=== PATIENT | female | born 1955 | race Caucasian/White ===

== ENCOUNTER 2019-04-13 15:25 | Outpatient (CLI) | payer OTHER, SELFPAY ==
--- NOTE | ~2019-04-13 | XR_ITS ---
EXAMINATION: XR shoulder RT min 2V DATE: 04/13/2019 15:54 INDICATION: Right shoulder pain. TECHNIQUE: 4 views of right shoulder were obtained. COMPARISON: None. FINDINGS: Bone alignment is normal. No fracture. There is mild osteoarthritis of glenohumeral joint a nd moderate osteoarthritis of acromioclavicular joint. IMPRESSION: 1. Polyarticular osteoarthritis. Reviewed, dictated and finalized at location A. EW TEACHER
== END 2019-04-13 15:26 | disposition home or self-care (01) ==
PROVIDERS: PCP Family Medicine; Visit Provider Family Medicine
DX: M25.511 Pain in right shoulder (principal)
CPT/HCPCS: 73030

== ENCOUNTER 2019-04-18 12:16 | Outpatient (CLI) | payer OTHER, SELFPAY ==
--- NOTE | ~2019-04-18 | MM_ITS ---
EXAMINATION: MM screening [facility] BI w kasie HISTORY: Screening mammogram TECHNIQUE: Craniocaudal and mediolateral oblique 3-D tomosynthesis images were obtained and synthetic 2-D images were generated. CAD analysis was submitted and interpreted. COMPARISON: 11/25/2016, 08/15/2014, 01/13/2012 BREAST PARENCHYMAL COMPOSITION: There are scattered areas of fibroglandular density. FINDINGS: There is no evidence of suspicious mass, calcification, or architectural distortion to sugg est malignancy in either breast. There has been no suspicious interval change. IMPRESSION: 1. No mammographic evidence of malignancy. 2. Recommend routine screening mammography in one year. BI-RADS Category 1: Negative Reviewed, dictated and finalized at location A. OR ANALYTICAL CHEMIST
== END 2019-04-18 12:17 | disposition home or self-care (01) ==
LOC: CHSIMG 12:21
PROVIDERS: PCP Family Medicine; Visit Provider Family Medicine
DX: Z12.31 Encounter for screening mammogram for malignant neoplasm of breast (principal)
CPT/HCPCS: 77063; 77067

== ENCOUNTER 2019-05-03 13:48 | Outpatient (CLI) | payer OTHER, SELFPAY ==
--- NOTE | ~2019-05-03 | MR_ITS ---
EXAMINATION: MR shoulder RT wo con DATE: 05/03/2019 14:39 INDICATION: Right shoulder pain TECHNIQUE: Magnetic resonance imaging (MRI) of the right shoulder was performed without intravenous c ontrast. Sequences included axial PD-weighted FS FSE, coronal oblique PD-weighted FS FSE, coronal obl ique T2-weighted FS FSE, sagittal PD-weighted FS FSE, and sagittal T1-weighted SE. COMPARISON: Shoulder radiographs dated 04/03/2019 FINDINGS: Coracoacromial arch: The acromion undersurface is curved in morphology (type II). The coracoacromial ligament is normal. M oderate acromioclavicular osteoarthritis. Rotator cuff: Supraspinatus and mild infraspinatus tendinopathy without discrete tear. The teres minor tendon is no rmal. Subscapularis tendinopathy without discrete tear. Normal rotator cuff muscle bulk and signal. Biceps tendon, glenoid labrum and glenohumeral cartilage: Long head of the biceps tendon appears normal although evaluation of the intra-articular portion of t he tendon is limited by suboptimal position of the arm which is in partial internal rotation. Glenoid labrum is normal. Mild partial thickness cartilage loss with smooth chondral surface along the cepha lad third of the glenoid. Fluid: Physiologic amount of fluid in the glenohumeral joint and biceps tendon sheath. No loose osteochondra l bodies. Small amount of fluid in the subacromial/subdeltoid bursa consistent with mild bursitis. Bones: Normal marrow signal with no edema, fracture or abnormal marrow replacing process. IMPRESSION: 1. Rotator cuff tendinopathy, moderate at the supraspinatus and mild at the infraspinatus and subscap ularis tendons without discrete tear. 2. Moderate acromioclavicular osteoarthritis and mild glenohumeral osteoarthritis. 3. Mild subacromial/subdeltoid bursitis. Reviewed, dictated and finalized at location A. AGER HAND IMPRESSION: 1. Rotator cuff tendinopathy, moderate at the supraspinatus and mild at the inf raspinatus and subscapularis tendons without discrete tear. 2. Moderate acromioclavicular osteoarthritis and mild glenohumeral osteoarthrit is. 3. Mild subacromial/subdeltoid bursitis.
== END 2019-05-03 13:49 | disposition home or self-care (01) ==
PROVIDERS: PCP Family Medicine; Visit Provider Family Medicine
DX: M25.511 Pain in right shoulder (principal)
CPT/HCPCS: 73221

== ENCOUNTER 2019-10-18 16:53 | Outpatient (CLI) | payer OTHER, SELFPAY ==
--- NOTE | ~2019-10-18 | XR_ITS ---
XR foot LT min 3V DATE: 10/18/2019 17:24 INDICATION: Chronic toe pain TECHNIQUE: 4 views COMPARISON: None FINDINGS: Moderate osteopenia. There is plantar and posterior calcaneal enthesopathy. There is hallux valgus and bunion deformity. S ubchondral lucencies are noted at the first metatarsal head medially and laterally. Differential diag nosis includes subchondral degenerative pseudocyst versus gout or erosive arthropathy. Recommend clin ical correlation. No fracture, dislocation, periosteal reaction or bone destruction is noted otherwise. IMPRESSION: Calcaneal enthesopathy Degenerative change at the first metatarsophalangeal joint with subchondral lucencies of the metatars al head and lateral base of the proximal phalanx of first digit. Differential diagnosis includes dege nerative subchondral cyst versus erosive arthropathy or gout. Reviewed, dictated and finalized at location B. IMPRESSION: Calcaneal enthesopathy Degenerative change at the first metatarsophalangeal joint with subchondral delia encies of the metatarsal head and lateral base of the proximal phalanx of first digit. Differential diagnosis includes degenerative subchondral cyst versus er osive arthropathy or gout.
--- NOTE | ~2019-10-18 | XR_ITS ---
XR hand LT min 3V DATE: 10/18/2019 17:25 INDICATION: Chronic left hand pain, worsening TECHNIQUE: 3 views COMPARISON: None FINDINGS: There is osteoarthritic change primarily at the interphalangeal joints. No fracture or dislocation, periosteal reaction or bone destruction, erosive change or chondrocalcino sis is evident. IMPRESSION: Osteoarthritis Reviewed, dictated and finalized at location B. IMPRESSION: Osteoarthritis
--- NOTE | ~2019-10-18 | XR_ITS ---
XR hip LT min 2V DATE: 10/18/2019 17:25 INDICATION: Chronic left hip pain TECHNIQUE: AP and lateral views of the left hip COMPARISON: None FINDINGS: No fracture, dislocation, avascular necrosis or bone destruction. Left hip joint space is w ell preserved. IMPRESSION: Negative Reviewed, dictated and finalized at location B. IMPRESSION: Negative
== END 2019-10-18 16:54 | disposition home or self-care (01) ==
LOC: CHSIMG 16:55
PROVIDERS: PCP Family Medicine; Visit Provider Family Medicine
DX: M79.675 Pain in left toe(s) (principal); M79.602 Pain in left arm; M25.552 Pain in left hip
CPT/HCPCS: 73130; 73502; 73630

== ENCOUNTER 2020-01-31 12:19 | Outpatient (CLI) | payer OTHER, SELFPAY ==
--- NOTE | ~2020-01-31 | XR_ITS ---
EXAMINATION: XR humerus RT EXAM DATE: 01/31/2020 12:49 INDICATION: Right arm pain, tingling radiating toward hand. TECHNIQUE: 2 orthogonal projections right humerus. Correlation was made with right shoulder exam fro m 04/13/2019. FINDINGS: There is mild to moderate right shoulder primary osteoarthritis. There are no acute fractur es or dislocations identified. There is no subcutaneous gas. The soft tissue is unremarkable. The re are no radiopaque foreign bodies. IMPRESSION: Mild to moderate shoulder osteoarthritis. Reviewed, dictated and finalized at location A. GRITY CONSULTANT
[2020-01-31 12:51] LABS: Basophils Absolute Auto 0.04 K/mm3 (0.00-0.10); Basophils Percent Auto 0.4 % (0.0-1.0); Eosinophils Percent Auto 0.9 % (1.0-6.0); Hematocrit 37.3 % (35.0-49.0); Hemoglobin 11.6 g/dL (12.0-15.0); Immature Granulocyte Absolute 0.06 K/mm3 (0.00-0.00); Immature Granulocyte Percent A 0.5 % (0.0-0.0); Lymphocytes Absolute Auto 1.84 K/mm3 (1.10-4.50); Lymphocytes Percent Auto 16.3 % (18.0-42.0); Mean Corpuscular HGB Conc 31.1 g/dL (32.0-36.0); Mean Corpuscular Hemoglobin 28.1 pg (27.0-31.0); Mean Corpuscular Volume 90.3 fL (78.0-102.0); Mean Platelet Volume 10.9 fl (9.2-11.8); Monocytes Absolute Auto 0.64 K/mm3 (0.10-0.90); Monocytes Percent Auto 5.7 % (2.0-11.0); Neutrophils Absolute Auto 8.6 K/mm3 (1.7-7.2); Neutrophils Percent Auto 76.2 % (50.0-70.0); Platelet Count Result 255 K/mm3 (150-420); Red Blood Count 4.13 M/mm3 (4.20-5.40); Red Cell Distribution Width 13.2 % (11.6-14.4); White Blood Count 11.3 K/mm3 (4.8-10.8)
[2020-01-31 13:00] LABS: D Dimer 0.45 mg/L (0.19-0.50)
[2020-01-31 13:12] LABS: Alanine Aminotransferase 24 U/L (14-59); Albumin Level 3.7 g/dL (3.4-5.0); Alkaline Phosphatase 85 U/L (46-116); Anion Gap 9 mmol/L (8-16); Aspartate Amino Transferase 15 U/L (15-37); Bilirubin,Total 0.4 mg/dL (0.00-1.00); Blood Urea Nitrogen 16 mg/dL (7-18); Carbon Dioxide 28 mmol/L (21-32); Chloride 101 mmol/L (98-108); Creatine Kinase 44 U/L (26-192); Estimated Glomerular Filt Rate 49; Glucose 129 mg/dL (70-99); Osmolality Calculated 289 mOsm/kg (285-295); Potassium 4.2 mmol/L (3.5-5.1); Sodium 138 mmol/L (136-145); Total Protein 8.4 g/dL (6.4-8.2)
[2020-01-31 13:40] LABS: Creatine Kinase MB < 0.50 ng/mL (0.00-5.00); Troponin I < 0.02 ng/mL (0.00-0.056)
== END 2020-01-31 12:20 | disposition home or self-care (01) ==
LOC: CHSLAB 12:20
PROVIDERS: PCP Family Medicine; Visit Provider Family Medicine
DX: I20.9 Angina pectoris, unspecified (principal); M79.601 Pain in right arm
CPT/HCPCS: 36415; 73060; 80053; 82550; 82553; 84484; 85025; 85380

== ENCOUNTER 2020-09-02 15:20 | Outpatient (CLI) | payer OTHER, SELFPAY ==
[2020-09-02 15:35] LABS: Basophils Absolute Auto 0.08 K/mm3 (0.00-0.10); Basophils Percent Auto 0.8 % (0.0-1.0); Eosinophils Absolute Auto 0.41 K/mm3 (0.02-0.50); Eosinophils Percent Auto 3.9 % (1.0-6.0); Hematocrit 35.3 % (35.0-49.0); Hemoglobin 11.7 g/dL (12.0-15.0); Immature Granulocyte Absolute 0.04 K/mm3 (0.00-0.00); Immature Granulocyte Percent A 0.4 % (0.0-0.0); Lymphocytes Absolute Auto 1.95 K/mm3 (1.10-4.50); Lymphocytes Percent Auto 18.3 % (18.0-42.0); Mean Corpuscular HGB Conc 33.1 g/dL (32.0-36.0); Mean Corpuscular Hemoglobin 30.1 pg (27.0-31.0); Mean Corpuscular Volume 90.7 fL (78.0-102.0); Mean Platelet Volume 10.7 fl (9.2-11.8); Monocytes Absolute Auto 0.89 K/mm3 (0.10-0.90); Monocytes Percent Auto 8.4 % (2.0-11.0); Neutrophils Absolute Auto 7.3 K/mm3 (1.7-7.2); Neutrophils Percent Auto 68.2 % (50.0-70.0); Platelet Count Result 257 K/mm3 (150-420); Red Blood Count 3.89 M/mm3 (4.20-5.40); Red Cell Distribution Width 13.5 % (11.6-14.4); White Blood Count 10.6 K/mm3 (4.8-10.8)
[2020-09-02 15:49] LABS: Hemoglobin A1C 6.6 % (<5.7)
[2020-09-02 16:01] LABS: Alanine Aminotransferase 29 U/L (14-59); Albumin Level 3.6 g/dL (3.4-5.0); Alkaline Phosphatase 85 U/L (46-116); Anion Gap 10 mmol/L (8-16); Aspartate Amino Transferase 19 U/L (15-37); Bilirubin,Total 0.4 mg/dL (0.00-1.00); Blood Urea Nitrogen 18 mg/dL (7-18); Carbon Dioxide 27 mmol/L (21-32); Chloride 103 mmol/L (98-108); Creatine Kinase 40 U/L (26-192); Estimated Glomerular Filt Rate 56; Glucose 125 mg/dL (70-99); Lipase 136 U/L (73-393); Osmolality Calculated 292 mOsm/kg (285-295); Sodium 140 mmol/L (136-145); Total Protein 7.5 g/dL (6.4-8.2); Troponin I 7.5 ng/L (0.00-60.4)
[2020-09-02 16:02] LABS: Creatine Kinase MB < 0.50 ng/mL (0.00-5.00)
[2020-09-02 16:20] LABS: Add Urine Microscopic? YES; Appearance Urine Clear (Clear); Bilirubin Urine Negative (Negative); Blood Urine 1+ (Negative); Color Urine Light Yellow (Yellow); Glucose Urine UA Negative (Negative); Ketones Urine Negative (Negative); Leukocyte Esterase Ur Negative (Negative); Nitrate Urine Negative (Negative); Protein Urine Negative (Negative); Urobilinogen Urine 0.2 mg/dL (0.2-1.0); pH Urine 6.5 (5.0-8.0)
[2020-09-02 16:24] LABS: RBC Urine 0-2 /hpf (0-2); WBC Urine 0-3 /hpf (0-3)
[2020-09-02 16:25] LABS: Bacteria Urine 1+ /hpf; Squamous Epithelial Cell Urine Few /hpf (Few)
== END 2020-09-02 15:21 | disposition home or self-care (01) ==
LOC: CHSLAB 15:23
PROVIDERS: PCP Family Medicine; Visit Provider Family Medicine
DX: R11.10 Vomiting, unspecified (principal); R07.89 Other chest pain; E11.9 Type 2 diabetes mellitus without complications
CPT/HCPCS: 36415; 80053; 81001; 82550; 82553; 83036; 83690; 84484; 85025

== ENCOUNTER 2020-11-12 12:02 | Outpatient (CLI) | payer OTHER, SELFPAY ==
--- NOTE | ~2020-11-12 | MM_ITS ---
EXAMINATION: MM screening [facility] BI w kasie HISTORY: Screening TECHNIQUE: Craniocaudal and mediolateral oblique 3-D tomosynthesis images were obtained and synthetic 2-D images were generated. CAD analysis was submitted and interpreted. COMPARISON: Comparison to multiple prior studies sequentially, with oldest reviewed study dated 11/2010. BREAST PARENCHYMAL COMPOSITION: There are scattered areas of fibroglandular density. FINDINGS: There is no evidence of suspicious mass, calcification, or architectural distortion to sugg est malignancy in either breast. There has been no suspicious interval change. IMPRESSION: 1. No mammographic evidence of malignancy. 2. Recommend routine screening mammography in one year. BI-RADS Category 1: Negative Reviewed, dictated and finalized at location A.
--- NOTE | ~2020-11-12 | DEXA_ITS ---
Bone Density Report Name: Sharda Mccabe Age: 65 Sex: Female Ethnicity: White Date of : 1955 Indication: osteopenia; parental hip fracture; height loss; history of glucocorticoids; prior fracture; rheumatoid arthritis; Referring Provider: Tamela, Yadi Carpio Study: Bone densitometry was performed. Exam Date: November 12, 2020 Accession number: [id number] Bone Density: Region BMD T-score Z-score Classification AP Spine(L1-L4) 0.769 -2.5 -0.8 Osteoporosis Femoral Neck (Left) 0.660 -1.7 -0.2 Osteopenia Total Hip (Left) 0.879 -0.5 0.7 Normal Femoral Neck (Right) 0.682 -1.5 0.0 Osteopenia Total Hip (Right) 0.861 -0.7 0.5 Normal Femoral Neck Mean 0.671 -1.6 -0.1 Osteopenia Total Hip Mean 0.870 -0.6 0.6 Normal World Health Organization criteria for BMD impression classify patients as: Normal (T-score at or above -1.0), Osteopenia (T-score between -1.0 and -2.5), or Osteoporosis (T-score at or below -2.5). 10-year Fracture Risk: FRAX not reported because: Some T-score for Spine Total or Hip Total or Femoral Neck at or below -2.5 Previous Exams: Region Exam Age BMD T-score BMD Change BMD Change Date g/cm2 vs Baseline vs Previous AP Spine (L1-L4) 11/12/2020 65 0.769 -2.5 -0.192 (-20.0% -0.065 (-7.8%) 11/25/2016 61 0.834 -1.9 -0.127 (-13.2% -0.127 (-13.2% 02/22/2009 54 0.961 -0.8 Total Hip(Left) 11/12/2020 65 0.879 -0.5 -0.125 (-12.5% -0.079 (-8.2%) 11/25/2016 61 0.958 0.1 -0.046 (-4.6%) -0.046 (-4.6%) 02/22/2009 54 1.004 0.5 Total Hip(Right) 11/12/2020 65 0.861 -0.7 -0.157 (-15.4% -0.157 (-15.4% 02/22/2009 54 1.018 0.6 *Denotes significance at 95% confidence level, LSC for AP Spine = 0.022 g/cm2, LSC for Total Hip = 0.027 g/cm2 # Denotes dissimilar scan types or analysis methods Clinical Information Provided by Patient: Has had a low trauma fracture Parent has had a hip fracture Has taken Glucocorticoids Has rheumatoid arthritis Patient maximum height was 63 No regular weight bearing exercise Drinks caffeinated beverages Onset of menses at age 14 Impression: The patient has established osteoporosis, based on the Total Spine T-score and the existence of a prior fracture. The patient has risk factors, including: parental hip fracture, previous fracture, history of glucocorticoid therapy. No significant bone loss was observed. Discussion: HIGH RISK OF FRACTURE. BONE DENSITY IS
== END 2020-11-12 12:03 | disposition home or self-care (01) ==
LOC: CHSIMG 12:03
PROVIDERS: PCP Family Medicine; Visit Provider Nurse Practitioner Family
DX: Z12.31 Encounter for screening mammogram for malignant neoplasm of breast (principal); Z78.0 Asymptomatic menopausal state
CPT/HCPCS: 77063; 77067; 77080

== ENCOUNTER 2021-12-08 12:43 | Outpatient (CLI) | payer OTHER, SELFPAY ==
--- NOTE | ~2021-12-08 | XR_ITS ---
EXAMINATION: XR foot RT min 3V DATE: 12/08/2021 13:06 INDICATION: Pain at the right great toe with inflammatory polyarthritis. TECHNIQUE: Dorsoplantar, two oblique and lateral views of the right foot were obtained. COMPARISON: None. FINDINGS: Prominent juxta-articular erosion at the medial side of the head of the first proximal phalanx. There are overhanging edges and indents masslike soft tissue density extending peripherally from the erosi on most suspicious for tophaceous gout. No other erosions identified. No other erosions identified. T here is associated intra-articular pathologic fracture with slight depression of the medial third of the distal articular surface with approximately 1 mm step-off along the articular cortex. Alignment i s otherwise normal. No other fractures identified. Mild osteoarthritis at the first metatarsophalange al and left few of the tarsal metatarsal and interphalangeal joints. IMPRESSION: 1. Large erosion at the medial head of the first proximal phalanx with associated extraosseous massli ke soft tissue density most suspicious for tophaceous gout. 2. Likely secondary pathologic intra-articular fracture involving the medial articular cortex of the first proximal phalanx which overlies the erosion. Reviewed, dictated and finalized at location A. IMPRESSION: 1. Large erosion at the medial head of the first proximal phalanx with associat ed extraosseous masslike soft tissue density most suspicious for tophaceous gou t. 2. Likely secondary pathologic intra-articular fracture involving the medial ar ticular cortex of the first proximal phalanx which overlies the erosion.
== END 2021-12-08 12:44 | disposition home or self-care (01) ==
LOC: CHSIMG 12:49
PROVIDERS: PCP Family Medicine
DX: M06.4 Inflammatory polyarthropathy (principal)
CPT/HCPCS: 73630

== ENCOUNTER 2021-12-23 12:47 | Outpatient (CLI) | payer OTHER, SELFPAY ==
--- NOTE | ~2021-12-23 | MM_ITS ---
EXAMINATION: MM screening [facility] BI w kasie HISTORY: Screening TECHNIQUE: Craniocaudal and mediolateral oblique 3-D tomosynthesis images were obtained and synthetic 2-D images were generated. CAD analysis was submitted and interpreted. COMPARISON: Comparison to multiple prior studies sequentially, with oldest reviewed study dated 12/15. BREAST PARENCHYMAL COMPOSITION: Breast composed of scattered areas of fibroglandular density FINDINGS: There is no evidence of suspicious mass, calcification, or architectural distortion to sugg est malignancy in either breast. There has been no suspicious interval change. IMPRESSION: 1. No mammographic evidence of malignancy. 2. Recommend routine screening mammography in one year. BI-RADS Category 1: Negative Reviewed, dictated and finalized at location A.
== END 2021-12-23 12:48 | disposition home or self-care (01) ==
LOC: CHSIMG 12:48
PROVIDERS: PCP Family Medicine; Visit Provider Family Medicine
DX: Z12.31 Encounter for screening mammogram for malignant neoplasm of breast (principal)
CPT/HCPCS: 77063; 77067

== ENCOUNTER 2022-02-10 15:34 | Outpatient (RCR) | payer OTHER, SELFPAY ==
--- NOTE | 2022-02-10 16:54 | PTOPEVDC ---
Assessment and note entered by Adri Dunn DPT Thank you for referring Sharda Mccabe to [facility].? An evaluation has been completed. No further treatment is needed. Evaluation Information Assessment Status Evaluation Diagnosis BPPV Onset 01/10/2022 Subjective Information Pt reports that she was at work and felt really dizzy. She felt like she was about to pass out. She went to the ER and found that her BP was really high. She reports no past history of dizziness in the past. Pt reports that at onset, the room was spinning, and she feels that she was being pulled to the left. She reports that symptoms last less than a minute. She reports that she gets symptoms when she looks up, rotates in bed, and sometimes when she leans down. She reports that she has meclizine that she takes as needed which she took this morning at 8am. She reports that she is unsure if the meclizine is helping her dizziness. Pt reports that she had a handful of ear infections when she was a kid but doesn't remember which ears. She reports frequent sinus infections and reports she sometimes likes to pop her ears. She reports that she has RA. Denies hearing changes and tinnitus, but reports some tinnitus over the years in both ears, L>R. Does not recall taking -myocin drugs in the past for chronic periods of time. She takes her BP medications regularly and they were adjusted since this all happened. Denies symptoms with pressure changes. Reported Pain Level Pain Score 0: Self Report Assessment PT Clinical Summary Pt presented to skilled PT with vertiginous symptoms when moving in bed, looking up, and when looking down. 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 The L Isabel was performed x 2 with patient demonstrating negative canalithic involvement via the L [place]-Hallpike and bilateral Supine Head Roll test after each performance of the Isabel. She was educated on the pathophysiology of her condition and was educated on performing the Isabel one additional time when waking up in the morning. PT suspects that treatment was successful due to lack of symptoms or nystagmus after treatment, but PT plans to follow-up with patient via phone call in
== END 2022-02-10 16:13 | disposition home or self-care (01) ==
LOC: CHSPT 15:34
PROVIDERS: PCP Family Medicine; Visit Provider Family Medicine
DX: R42 Dizziness and giddiness (principal)
CPT/HCPCS: 97110; 97161

== ENCOUNTER 2022-06-25 13:45 | Outpatient (CLI) | payer OTHER, MEDICARE, SELFPAY ==
--- NOTE | ~2022-06-25 | XR_ITS ---
Left foot Technique: AP, oblique, and lateral views were obtained. Clinical History: Third digit pain Findings: No acute fracture or dislocation is seen. Osseous alignment is anatomic. Stable subchondral lucencies at the first metatarsal head.. Soft tissues are unremarkable. Impression: Stable subchondral lucencies at the first metatarsal head. Consider mild osteoarthritic change versus possibly gout or other erosive arthropathy. Reviewed, dictated and finalized at [facility]. Impression: Stable subchondral lucencies at the first metatarsal head. Consider mild osteoa rthritic change versus possibly gout or other erosive arthropathy.
== END 2022-06-25 13:46 | disposition home or self-care (01) ==
PROVIDERS: PCP Family Medicine; Visit Provider Family Medicine
DX: M79.671 Pain in right foot (principal); M79.672 Pain in left foot
CPT/HCPCS: 73630

== ENCOUNTER 2022-07-28 12:26 | Outpatient (CLI) | payer OTHER, MEDICARE, SELFPAY ==
--- NOTE | ~2022-07-28 | US_ITS ---
EXAMINATION: US soft tissue head and neck DATE: 07/28/2022 12:46 INDICATION: Pain in throat in the area of the thyroid. TECHNIQUE: Multiple ultrasound images of the thyroid were obtained. COMPARISON: None. FINDINGS: The right thyroid lobe measures 2.7 x 1.1 x 1.0 cm. The left thyroid lobe measures 2.3 x 0.8 x 1.3 c m. There is normal echotexture and echogenicity throughout the thyroid gland. No discrete nodules id entified. Normal vascular flow is present. IMPRESSION: 1. Normal thyroid. Reviewed, dictated and finalized at location A. IMPRESSION: 1. Normal thyroid.
== END 2022-07-28 12:27 | disposition home or self-care (01) ==
LOC: CHSIMG 12:28
PROVIDERS: PCP Family Medicine; Visit Provider Family Medicine
DX: R07.0 Pain in throat (principal)
CPT/HCPCS: 76536

== ENCOUNTER 2022-11-12 16:24 | Outpatient (CLI) | payer OTHER, MEDICARE, SELFPAY ==
[2022-11-12 17:17] LABS: Appearance Urine Clear (Clear); Basophils Absolute Auto 0.08 K/mm3 (0.00-0.10); Bilirubin Urine Negative (Negative); Blood Urine Negative (Negative); Color Urine Light Yellow (Yellow); Eosinophils Absolute Auto 0.31 K/mm3 (0.02-0.50); Eosinophils Percent Auto 3.7 % (1.0-6.0); Glucose Urine UA Negative (Negative); Hemoglobin 10.6 g/dL (11.7-13.8); Immature Granulocyte Absolute 0.02 K/mm3 (0.00-0.00); Immature Granulocyte Percent A 0.2 % (0.0-0.0); Ketones Urine Negative (Negative); Lymphocytes Absolute Auto 3.03 K/mm3 (1.10-4.50); Lymphocytes Percent Auto 36.2 % (18.0-42.0); Mean Corpuscular HGB Conc 32.1 g/dL (32.0-36.0); Mean Corpuscular Hemoglobin 30.4 pg (27.0-31.0); Mean Corpuscular Volume 94.6 fL (78.0-102.0); Monocytes Absolute Auto 0.85 K/mm3 (0.10-0.90); Monocytes Percent Auto 10.2 % (2.0-11.0); Neutrophils Absolute Auto 4.1 K/mm3 (1.7-7.2); Neutrophils Percent Auto 48.7 % (50.0-70.0); Nitrate Urine Negative (Negative); Platelet Count Result 233 K/mm3 (150-420); Protein Urine Negative (Negative); Red Blood Count 3.49 M/mm3 (4.20-5.40); Red Cell Distribution Width 12.3 % (11.6-14.4); Urobilinogen Urine 0.2 mg/dL (0.2-1.0); White Blood Count 8.4 K/mm3 (4.8-10.8); pH Urine 7.5 (5.0-8.0)
[2022-11-12 17:21] LABS: Add Urine Microscopic? NO; Leukocyte Esterase Ur Negative LEU/UL (Negative)
[2022-11-12 17:24] LABS: Creatinine Urine 113.05 mg/dL (40-278); Hemoglobin A1C 6.7 % (<5.7); MALB Creatinine Ratio 11.4 mg/g (0-30); Microalbumin Urine Random < 13.0 mg/L
[2022-11-12 17:34] LABS: Alanine Aminotransferase 24 U/L (14-59); Albumin Level 3.5 g/dL (3.4-5.0); Alkaline Phosphatase 64 U/L (46-116); Anion Gap 6 mmol/L (8-16); Aspartate Amino Transferase 18 U/L (15-37); Bilirubin,Total 0.3 mg/dL (0.00-1.00); Blood Urea Nitrogen 23 mg/dL (7-18); Calcium 9.2 mg/dL (8.5-10.1); Carbon Dioxide 33 mmol/L (21-32); Chloride 101 mmol/L (98-108); Estimated Glomerular Filt Rate 38; Glucose 110 mg/dL (70-99); Osmolality Calculated 294 mOsm/kg (285-295); Potassium 3.9 mmol/L (3.5-5.1); Sodium 140 mmol/L (136-145); Thyroid Stimulating Hormone 3.03 uIU/mL (0.36-3.74); Total Protein 7.1 g/dL (6.4-8.2)
[2022-11-12 17:37] LABS: CRP < 0.5 mg/dL (0.0-0.9)
[2022-11-12 17:54] LABS: Influenza A QL RT-PCR Negative (Negative); Influenza B QL RT-PCR Negative (Negative); SARS-CoV-2 RNA PCR Negative (Negative)
[2022-11-12 18:45] LABS: Erythrocyte Sedimentation Rate 50 mm/hr (0-20)
== END 2022-11-12 16:25 | disposition home or self-care (01) ==
LOC: CHSLAB 16:27
PROVIDERS: PCP Family Medicine; Visit Provider Family Medicine
DX: E11.9 Type 2 diabetes mellitus without complications (principal); R53.83 Other fatigue; Z20.822 Contact with and (suspected) exposure to COVID-19
CPT/HCPCS: 36415; 80053; 81003; 82043; 83036; 84443; 85025; 85652; 86140; 87636

== ENCOUNTER 2022-11-18 14:27 | Outpatient (CLI) | payer OTHER, MEDICARE, SELFPAY ==
--- NOTE | ~2022-11-18 | XR_ITS ---
EXAMINATION: XR ankle RT min 3V, XR foot RT min 3V DATE: 11/18/2022 14:59 INDICATION: Right foot pain post injury TECHNIQUE: 1. Anteroposterior, mortise, additional oblique and lateral view of the right ankle were obtained. 2. Dorsoplantar, two oblique and lateral views of the right foot were obtained. COMPARISON: Right foot radiographs dated 12/08/2021 FINDINGS: Again seen is a now chronic intra-articular fracture deformity at the medial head of the right first proximal phalanx. There is approximately 1.6 mm step-off along the articular cortex. There is an unde rlying subarticular/juxta articular erosion suspicious for gout. 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 Normal alignment at t he right foot and ankle is otherwise normal. No acute fracture identified. Mild osteoarthritis at the first metatarsophalangeal and a few tarsometatarsal and interphalangeal joints. Small plantar calcan eal spur. The soft tissues are unremarkable. IMPRESSION: 1. No acute osseous abnormality. 2. Chronic likely pathologic intra-articular fracture at the medial head of the right first proximal phalanx which has healed with residual incongruity at the articular surface which overlies a large ch ronic erosion suspicious for gout. Reviewed, dictated and finalized at location A. IMPRESSION: 1. No acute osseous abnormality. 2. Chronic likely pathologic intra-articular fracture at the medial head of the right first proximal phalanx which has healed with residual incongruity at the articular surface which overlies a large chronic erosion suspicious for gout.
== END 2022-11-18 14:28 | disposition home or self-care (01) ==
LOC: CHSIMG 14:29
PROVIDERS: PCP Family Medicine; Visit Provider Family Medicine
DX: M79.671 Pain in right foot (principal); R93.6 Abnormal findings on diagnostic imaging of limbs
CPT/HCPCS: 73610; 73630

== ENCOUNTER 2024-04-20 11:11 | Outpatient (CLI) | payer MEDICARE, SELFPAY ==
--- NOTE | ~2024-04-20 | XR_ITS ---
Clinical Indication: Upper is recurrent infection PA and lateral views of the chest: Comparison: 08/10/2014 Findings: The lungs are clear, without evidence of focal consolidation or pleural effusion. Cardiome diastinal silhouette is within normal limits. Bones and soft tissues are unremarkable. Impression: Normal chest. Reviewed, dictated and finalized at [facility]. ERVATION OFFICER Impression: Normal chest.
--- OUTSIDE RECORDS SUMMARY | 2024-04-20 11:39 | XMS_ITS | Clinical Summary ---
Author Organization [facility] Address [facility] [place] [address] Care Team Providers Care Yeast Tender Name Role Phone Cameron Lopez MD Primary Care Provider [phone] Allergies Active Allergy Reactions Criticality Noted Date Comments Sulfa Antibiotics Swelling 05/11/2019 Tramadol Nausea and Vomiting 01/06/2023 Medications fluticasone propionate 50 MCG/ACT nasal spray INHALE 1 SPRAY IN EACH NOSTRIL ONCE DAILY NEEDED 01/24/2019 Active zolpidem 10 MG tablet Take 1 tablet (10 mg total) by mouth nightly as needed. at bedtime. 04/18/2019 Active metoprolol succinate ER 50 MG 24 hr tablet Take 1 tablet (50 mg total) by mouth daily. Active nortriptyline 50 MG capsule Take 1 capsule (50 mg total) by mouth nightly at bedtime. Active metFORMIN 500 MG tablet Take 1 tablet (500 mg total) by mouth 2 (two) times daily with meals. Active olmesartan 20 MG tablet Take 1 tablet (20 mg total) by mouth daily. Active simvastatin 40 MG tablet Take 1 tablet (40 mg total) by mouth nightly at bedtime. Active rizatriptan 10 MG tablet Take 1 tablet (10 mg total) by mouth as needed for Migraine. May repeat in 2 hours if needed Active gabapentin (NEURONTIN) 300 MG capsule Take 1 capsule (300 mg total) by mouth daily. 12/14/2022 Active hydroCHLOROthia zide (MICROZIDE) 12.5 MG tablet Take 1 tablet (12.5 mg total) by mouth every morning. 10/12/2022 Active etanercept (ENBREL) 50 MG/ML Solution Auto-injector injection Inject 0.5 mLs (25 mg total) into the skin every 7 days. Active Active Problems Problem Noted Date Diagnosed Date Sprain of anterior talofibul ar ligament of right ankle, subsequent encounter 01/10/2023 Closed nondisplaced fracture of proximal phalanx of right great toe, sequela 01/10/2023 Family History Medical History Relation Comments Heart Attack Brother Diabetes Father Heart Father Heart Attack Father Diabetes Mother Heart Mother Heart Attack Mother Heart Sister Relation Status Comments Brother Father Mother Sister Social History Tobacco Use Types Packs/Day Years Used Date Smoking Tobacco: Never Smokeless Tobacco: Never Tobacco Cessation:Counseling Given: Not Answered Alcohol Use Standard Drinks/Week Comments Not Currently 0 (1 standard drink = 0.6 oz pur e alcohol) Comments Unknown Sex and Gender Information Value Date Recorded Sex Assigned at Not on file Legal Sex Female 8:06 PM CDT Gender Identity Not on file Sexual Orientation Not on file Last Filed Vital Signs Vital Sign Reading Time Taken Comments Blood Pressure - - Pulse - - Temperature - - Respiratory Rate - - Oxygen Saturation - - Inhaled Oxygen Concentration - - Weight 76.2 kg (168 lb) 01/06/2023 1:34 PM CDT Height 152.4 cm (5') 01/06/2023 1:34 PM CDT Body Mass Index 32.81 01/06/2023 1:34 PM CDT Plan of Treatment Health Maintenance Due Date Last Done Comments Colorectal Cancer Screening Colonoscopy (10 Years) 1955 Hepatitis C 01/30/1974 DTaP, Tdap and Td Vaccines ( 1 - Tdap) 01/30/1975 Mammogram Screening 1996 Zoster Vaccines (2 of 3) 07/01/2016 05/06/2016 Annual Medicare Wellness Visit 01/30/2021 Dexa Scan (General) 01/30/2021 Pneumococcal Vaccine: 65+ Ye ars (1 of 1 - PCV) 01/30/2021 COVID-19 Vaccine ( - 2023-2 5 season) 2023 Influenza Adult (#1) 2023 RSV Immunization or 60+ Years (1 - 1-dose 75+ series) 01/30/2031 Meningococcal B Vaccine Aged Out No l onger eligible based on patient's age to complete this topic Meningococcal Vaccine Aged Out No liz korina eligible based on patient's age to complete this topic RSV Immunizations Under 20 Months Aged Out No longer eligible based on patient's age to complete this topic [place] [id number] [facility] Care Teams Yeast Tender Relationship Specialty Start Date End Date Cameron Lopez MD [address] [place] [address] PCP - General FAMILY PRACTICE 05/04/19
--- OUTSIDE RECORDS SUMMARY | 2024-04-20 11:39 | XMS_ITS | Data Portability ---
Author Organization [facility], [address] [facility] ([place]) Address [address] [address] Care Team Providers Care Warehouse Team Leader Name Role Phone MONICO MUNIZ Referring Provider [phone] Assessment Encounter Date Assessment Date Assessment LastModified by Organization Details LastModified Time 09/09/2023 09/09/2023 IMPRESSION: 1. Seropositive RA currently flaring. 2. Osteoarthritis. PLAN: 1. We will obtain a copy of her most recent labs from [facility]. 2. Very brief 1 week course of hydrocodone therapy as she cannot take oral NSAIDs. She has been on hydrocodone in the past and tolerated it well. I informed her today I do not prescribe this medication out beyond 7 day course. She is given [place] 7.5/325 tabs one-half to 1 tablet orally twice daily, given 14 tablets no refill. 3. Discontinue Enbrel. 4. RINVOQ 15 mg orally daily. The indications, risks, benefits and potential side effects of this medication, including risk of infections, cytopenias, hyperlipidemia, myocardial events, DVT, and thromboses, as well as infections are all discussed with the patient today in detail. 5. DMARD labs in 4 weeks after starting RINVOQ, then 8 weeks after starting RINVOQ, also to include a lipid panel. 6. Followup visit in 3 months for recheck. [place] Not available 09/12/2023 09:09:39 12/23/2023 12/23/2023 IMPRESSION: 1. Seropositive RA, currently very well controlled, essentially clinical remission. 2. Osteoarthritis. PLAN: 1. Continue RINVOQ 15 mg daily. 2. Labs done recently will be retrieved and reviewed. 3. Repeat DMARD labs in 6 weeks. 4. Followup visit in 4-1/2 months for recheck. rita Not available 01/04/2024 08:47:11 Plan of Treatment Reminders Order Date Submit Date Provider Last Modified By Organization Details Last Modified Time Details Appointments Establish ed Patient 15.EST 2024 01:00P M Dr. Craig Templeton Not available Not available Not available Lab CBC 2023 024 [email or web address] [facility], [address] [place] [address], [id number], 10/28/2023 14:07:31 CMP, serum or plasma 2023 024 [facility], [address] [place] [address], [id number], 10/28/2023 14:07:31 ESR (erythroc yte sedimenta tion rate), blood 2023 024 [id number] [facility], [address] [place] [address], [id number], 10/28/2023 14:07:32 unlisted lab - CRP ([facility]) 2023 024 [id number] [facility], [address] [place] [address], [id number], 10/28/2023 14:07:32 CBC 2023 024 [id number] [facility], [address] [place] [address], [id number], 01/06/2024 10:27:32 CMP, serum or plasma 2023 024 [id number] [facility], [address] [place] [address], [id number], 01/06/2024 10:27:32 ESR (erythroc yte sedimenta tion rate), blood 2023 024 [id number] [facility], [address] [place] [address], [id number], 01/06/2024 10:27:32 unlisted lab - CRP ([facility]) 2023 [email or web address] [facility], [address] [place] [address], [place], [id number], 01/06/2024 10:27:32 Referral None recorded. Procedures None recorded. Surgeries None recorded. Imaging None recorded. Medication Orders hydrocodo ne 7.5 mg-acetam inophen 325 mg tablet 2023 [id number], [address], [place], [phone], 12/23/2023 16:07:35 Patient TargetsNo targets recorded. Patient InstructionsNo instructions recorded. Reason for Referral None Reported. Results Created Date Observation Date Name Description Value Unit Range Abnormal Flag Note LastModifiedBy Organization Detail LastModifiedTime 10/28/1906/25/2022 imagi ng/di cesaros tic resul t No observ ation record ed. Not Available 10/28/2023 02:23:32 Result Notes None recorded. Problems Name Problem SNOMED Code Status Onset Date Resolution Date Notes Provider Name and Address Organization Details Recorded Time Chronic kidney disease stage 3 701668317 Active 2023 Rubi Gaxiola [facility] 4 11:46:35 Oste[facility] 456467135 [facility] 11:46[facility]40 Seropositive rheumatoid arthritis 471022885 Active 2023 Rubi Gaxiola [facility] 4 11:46:46 Problem Notes None recorded. Procedures Surgical History Date Name Laterality Status Provider Name and Address Organization Details Recorded Time Colonoscopy with biopsy completed Not Available Health Note 09/07/2023 15:12:55 Removal of gallbladder completed Not Available Health Note 09/07/2023 15:12:55 Imaging Results Imaging Date Name Status LastModified by Organiz ation Details LastModified Time 06/25/2022 imaging/diag nostic result completed Information not available 10/28/2023 02:23:32 Procedure Notes None recorded. Medical Equipment None Reported. Allergies Allergen ID Allergen Name Allergen Category Reaction Reaction Severity Criticality Documentation Date Start Date Code Code System Note Provider Name and Address Organization Details Recorded Time 2781210 Acetamino phen / Propoxyph chrissie medicatio n bradycard ia Not available Not available 04/14/20232006 45104 RxNorm React ion: Abhijit cardi a; Not Available Not Available Not Available 359681 Substance with sulfonami de structure and antibacte rial mechanism of action (substanc e) medicatio n swelling Not available Not available 04/12/20232011 07209 8003 SNOMED React ion: Swell ing; Comme nt: Annot ation s: GRUND Y, BRAND ON 2011 3:03P M CAUSE D TONGU E AND LIPS TO SWELL ; ; Not Available Not Available Not Available 101562 tramadol hydrochlo ride medicatio n dizziness Not available Not available 04/12/20232006 96463 RxNorm React ion: Vomit ing; Dizzi ness; Not Available Not Available Not Available 690704 lisinopri l medicatio n Not available Not available Not available 04/12/20232019 33008 RxNorm Not Available Not Available Not Available Medications Name Sig Start Date Stop Date Status Note LastModified by Organization Details LastModified Time metformin 500 mg tablet TAKE 1 TABLET BY MOUTH THREE TIMES DAILY active Not Available Not Available No t Available azithromyci n 250 mg tablet TAKE 2 TABLETS BY MOUTH TODAY, THEN TAKE 1 TABLET DAILY FOR 4 DAYS DIRECTED 12/22 completed Not Available Not Available Not Available metoprolol succinate ER 50 mg tablet,exte nded release 24 hr take 1 tablet daily active Not Available Not Available No t Available hydrocodone 5 mg-acetamin ophen 325 mg tablet TAKE 1 TABLET BY MOUTH EVERY 6 HOURS NEEDED FOR SEVERE PAIN 09/06 completed Not Available Not Available Not Available metoprolol succinate ER 100 mg tablet,exte nded release 24 hr TAKE 1 TABLET BY MOUTH EVERY DAY 12/22 completed Not Available Not Available Not Available amoxicillin 500 mg tablet 12/22 completed Not Available Not Available Not Available simvastatin 40 mg tablet TAKE ONE BY MOUTH EVERY NIGHT AT BEDTIME active Not Available Not Available No t Available hydrocodone 7.5 mg-acetamin ophen 325 mg tablet TAKE 1/2 TO 1 TABLET BY MOUTH TWICE DAILY NEEDED 12/22 completed Not Available Not Available Not Available gabapentin 300 mg capsule TAKE 1 CAPSULE BY MOUTH DAILY active Not Available Not Available No t Available nortriptyli ne 50 mg capsule TAKE 1 CAPSULE BY MOUTH AT BEDTIME active Not Available Not Available No t Available amoxicillin 875 mg-potassiu m clavulanate 125 mg tablet TAKE 1 TABLET BY MOUTH EVERY 12 HOURS 12/22 completed Not Available Not Available Not Available olmesartan 40 mg tablet TAKE 1 TABLET BY MOUTH EVERY DAY active Not Available Not Available No t Available iron 325 mg (65 mg iron) tablet Take 1 tablet every day by oral route. active Not Available Not Available No t Available Enbrel SureClick 50 mg/mL (1 mL) subcutaneou s pen injector Inject 1 mL every week by subcutane ous route. 09/08 completed Not Available Not Available Not Available hydrochloro thiazide 12.5 mg tablet TAKE 1 TABLET BY MOUTH DAILY active Not Available Not Available No t Available Rinvoq 15 mg tablet,exte nded release Take 1 tablet every day by oral route. active Not Available Not Available No t Available Pogo Automatic Blood Glucose System USE TO CHECK BLOOD SUGAR ONCE DAILY active Not Available Not Available No t Available Pogo Automatic Test Cartridge 30 gauge combo pack USE TO CHECK BLOOD SUGAR ONCE DAILY active Not Available Not Available No t Available Ozempic 0.25 mg or 0.5 mg (2 mg/3 mL) subcutaneou s pen injector INJECT 0.5MG UNDER THE SKIN WEEKLY 12/22 completed Not Available Not Available Not Available Vitals Date Recorded Body height Body mass index (BMI) Body weight Heart rate Oxygen saturation Oxygen saturation in Arterial blood by Pulse oximetry Pain severity - 0-10 verbal numeric rating [Score] - Reported Systolic blood pressure Diastolic blood pressure Provider Name and Address Organization Details Last Updated DateTime 4 152.4 cm 29.3 kg/m2 16702.8 6 g 78 /min 98 % 98 % 7 130 mm[Hg] 80 mm[Hg] Rubi Gaxiola [facility] 4 14:46:53 Date Recorded Body height Body mass index (BMI) Body weight Heart rate Oxygen saturation Oxygen saturation in Arterial blood by Pulse oximetry Pain severity - 0-10 verbal numeric rating [Score] - Reported Systolic blood pressure Diastolic blood pressure Provider Name and Address Organization Details Last Updated DateTime 4 152.4 cm 31.5 kg/m2 18062.8 1 g 71 /min 96 % 96 % 0 138 mm[Hg] 76 mm[Hg] Татьяна Norma [facility] 4 16:06:43 Social History Question Answer Notes LastModified by [employer] Details LastModified Time Tobacco Smoking Status Never Smoker Татьяна [facility] 12/23/2023 16:08:38 Do You Have An Advance Directive? No [email or web address] Information not available 09/07/2023 What Is Your Level Of Alcohol Consumption? None [email or web address] Information not available 09/07/2023 What Is Your Level Of Caffeine Consumption? Occasional [email or web address] Information not available 09/07/2023 Are You Currently Employed? 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 1-2 Times Per Week [email or web address] Information not available 09/07/2023 Do You Have A Medical Power Of Resource Conservation Specialist? No [email or web address] Information not available 09/07/2023 What Was The Date Of Your Most Recent Tobacco Screening? 09/09/2023 [email or web address] Information not available 09/07/2023 What Is Your Relationship Status? [email or web address] Information not available 09/07/2023 Do You Use Any Illicit Or Recreational Drugs? No [email or web address] Information not available 09/07/2023 Sex: Unknown Functional Status Question Answer Note LastModified by [employer] Details LastModified Time What is your exercise level? Occasional [email or web address] Information not available 09/07/2023 Mental Status None recorded. Family History Relationship Description Onset Age of this Age Resolved Age Notes LastModified by Organization Details LastModified Time Unspecified Relation Attention deficit hyperactivit y disorder [email or web address] Not available 09/06 15:12:53 Father Alzheimer's disease [email or web address] Not available 2023 15:12:53 Father Arthritis [email or web address] Not available 09/07/2023 15:12:53 Father Chronic obstructive pulmonary disease [email or web address] Not available 2023 15:12:53 Father Diabetes mellitus [email or web address] Not available 2023 15:12:53 Father Heart disease [email or web address] Not available 2023 15:12:53 Father Hypertensive disorder [email or web address] Not available 2023 15:12:53 Father Hypercholest erolemia [email or web address] Not available 2023 15:12:54 Mother Chronic obstructive pulmonary disease [email or web address] Not available 2023 15:12:54 Mother Diabetes mellitus [email or web address] Not available 2023 15:12:54 Mother Heart disease [email or web address] Not available 2023 15:12:54 Mother Hypertensive disorder [email or web address] Not available 2023 15:12:54 Mother Osteoporosis [email or web address] Not availa ble 09/07/2023 15:12:54 Sister Chronic obstructive pulmonary disease [email or web address] Not available 2023 15:12:54 Sister Diabetes mellitus [email or web address] Not available 2023 15:12:54 Sister Heart disease [email or web address] Not available 2023 15:12:54 Sister Hypertensive disorder [email or web address] Not available 2023 15:12:54 Sister Hypercholest erolemia [email or web address] Not available 2023 15:12:54 Brother Chronic obstructive pulmonary disease [email or web address] Not available 2023 15:12:54 Brother Diabetes mellitus [email or web address] Not available 2023 15:12:54 Brother Heart disease [email or web address] Not available 2023 15:12:54 Brother Hypertensive disorder [email or web address] Not available 2023 15:12:54 Brother Hypercholest erolemia [email or web address] Not available 2023 15:12:54 Maternal Grandmother Diabetes mellitus [email or web address] Not available 2023 15:12:54 Maternal Grandmother Heart disease [email or web address] Not available 2023 15:12:54 Maternal Grandmother Hypertensive disorder [email or web address] Not available 2023 15:12:54 Maternal Grandfather Heart disease [email or web address] Not available 2023 15:12:54 Maternal Grandfather Hypertensive disorder [email or web address] Not available 2023 15:12:54 Paternal Grandfather Heart disease [email or web address] Not available 2023 15:12:54 Medical History Condition Response Diabetes Y Anxiety Disorder N Bleeding Disorder N Attention-deficit Hyperactivity Disorder N High Blood Pressure Y Arthritis Y Hyperlipidemia N Cancer N Stroke N Thyroid Problems N Asthma N Depression N COPD N Anemia Y Seizures N Heart Disease N Fibromyalgia Y Osteoporosis N Kidney Disease N Gynecological HistoryNo gynecological history recorded. Obstetrics History GPAL:G 0 P 0 0 0 0 Past Encounters Encounter ID Performer Location Encounter Start Date Encounter Closed Date Diagnosis/Indication Diagnosis SNOMED-CT Code Diagnosis ICD10 Code Diagnosis Note [id number] [facility] ([place]) [address] [facility] [place] [address] 09/09/2023 14:14:03 09/14/2023 04:16:05 Seropositive rheumatoid arthritis 379591941 M05.9 Osteoarthritis 711613876 M19.90 Chronic ki dney disease stage 3 152176768 N18.30 Seropositi ve rheumatoid arthritis of multiple joints 3734023662 6635470 M05.89 Long-term current use of etanercept 5537827753 62985 Z79.173 [id number] Craig Templeton MD [facility] ([place]) [address] [facility] [place] [address] 12/23/2023 15:52:27 01/05/2024 08:49:18 Seropositive rheumatoid arthritis 290914423 M05.9 Osteoarthritis 822398425 M19.90 Chronic ki dney disease stage 3 834993442 N18.30 Health Concerns Section Related Observation LastModified by Organization Detai ls LastModified Time None Recorded Concern Status LastModified by Organization Details LastModified Time None Recorded Advance Directives Directive N: Payers Encounter Date Sequence Insurance Name Policy Number Policy Alvarado Covered Member ID Alvarado Member ID Guarantor Name 09/09/2023 1 [facility] [employer] [id number] Sharda Burtoner [id number] Sharda Dunhamgler 09/09/2023 2 [place] Sharda Burtoner [id number] Sharda Dunhamgler 12/23/2023 2 [place] Sharda Dunhamgler [id number] Sharda Dunhamgler 12/23/2023 1 [facility] [id number] Sharda Burtoner [id number] Sharda Burtoner Notes Date Note Type Note Provider Name and Address Organization Details Recorded Time 4 text/html The patient is a 68-year-old female with seropositive RA and osteoarthritis, who is here today for a 6 month followup visit. She continues on Enbrel monotherapy and reports tolerating the medication well. She had been on some Medrol, but then tapered herself off, but now has encountered a flare over the past 2-3 weeks with migratory arthralgias, swelling, pain and stiffness involving the wrists today at the left hand and wrist, but just this past week involving the right side, especially at the MCP joints of the hands. Her morning stiffness is currently lasting 60-90 minutes in duration. She rates her pain level today a 7/10 on a scale. She reports currently no issue with DVT or PE. No shingles. She has actually had the shingles vaccine. She has no history of melanoma or lymphoma or solid organ malignancy. She denies any fever or chills. No skin rash or Raynaud s symptoms, aphthous ulcers, neck swelling, lymph node swelling, cough or pleurisy, shortness of breath, chest pain or palpitations, GERD, melena or hematochezia, diarrhea or constipation. Of note, she has failed trials of mycophenolate, methotrexate, leflunomide and hydroxychloroquine.[place] Sharda Ruizmegan a 68 year oldfemalepresenting for care. Craig Templeton MD [address] [facility], [place], [address], [facility] 09/14/2023 11:25:16 4 text/html The patient is a 68-year-old female with seropositive RA and osteoarthritis, who is here today for a 4 month followup visit. At last visit, we stitched her from Enbrel to RINVOQ. It took a period of time to get it approved and finally get it in her hands. She reports she has now completed 2 full months of therapy and states that initially she was not sure it was going to work, but by the second week she felt tremendously better and currently she feels as though she felt back when things were normal and she was not diagnosed with RA. She has little to no morning stiffness. No pain at this time. She can close her hands again and just yesterday cleaned her entire greenhouse and cut her lawn, 2 things which she could not do previously. She reports that the RINVOQ is a miracle drug. It has led to a complete buddhist of her ability to do pretty much anything she wishes. She denies any medication associated postdosing headache, nausea, vomiting, rash, pruritus, cough, pleurisy, shortness of breath, chest pain or palpitations, GERD, melena or hematochezia, diarrhea or constipation, anorexia or early satiety. No VTE events or MACE events. She denies any shingles episodes. Her energy level is normal. She has had no Raynaud s symptoms. She did recently have labs at [facility] and we will obtain a copy of these labs for my review.rita Templeton MD [address] [facility], [place], [address], [facility] 01/04/2024 20:55:17 OBGyn Episode No OBEpisode recorded.
== END 2024-04-20 11:12 | disposition home or self-care (01) ==
PROVIDERS: PCP Family Medicine; Visit Provider Family Medicine
DX: J06.9 Acute upper respiratory infection, unspecified (principal)
CPT/HCPCS: 71046

== ENCOUNTER 2024-08-30 09:42 | Outpatient (CLI) | payer MEDICARE, SELFPAY ==
--- NOTE | ~2024-08-30 | CT_ITS ---
Non-contrast CT scan of the Abdomen and Pelvis Clinical indication: Abdominal pain Technique: 2.5 mm axial scans were obtained through the abdomen and pelvis without intravenous or or al contrast. Dose reduction technique was used on this scan by utilizing automated exposure control a nd iterative reconstruction technique. The dose-length product (DLP) was 426.62 mGy-cm. Findings: Images through the lung bases reveal no abnormalities. There is no evidence of renal or ureteral calculi. The kidneys and the ureters are nondilated. The liver, spleen, pancreas, and adrenals appear normal. Cholecystectomy clips are present. There is no aortic aneurysm. There is no evidence of bowel obstruction. Images through the pelvis were performed. There is no evidence of ascites or lymphadenopathy. Urinary bladder unremarkable. No pelvic mass seen. Impression: No significant abnormality seen. Reviewed, dictated and finalized at [facility]. Impression: No significant abnormality seen.
--- OUTSIDE RECORDS SUMMARY | 2024-08-30 10:42 | XMS_ITS | Data Portability ---
Author Organization [facility], [address] [facility] [place]rology ([place]) Address [address] [address] Care Team Providers Care Zinc Plate Cutter Name Role Phone MONICO MUNIZ Referring Provider Assessment Encounter Date Assessment Date Assessment LastModified by Organization Details LastModified Time 09/09/2023 09/09/2023 IMPRESSION: 1. Seropositive RA currently flaring. 2. Osteoarthritis. PLAN: 1. We will obtain a copy of her most recent labs from [facility]. 2. Very brief 1 week course of hydrocodone therapy as she cannot take oral NSAIDs. She has been on hydrocodone in the past and tolerated it well. I informed her today I do not prescribe this medication out beyond 7 day course. She is given [place] 7.5/325 tabs one-half to 1 tablet orally [...] visit in 4-1/2 months for recheck. rita [email or web address] Not available 01/04/2024 08:47:11 05/11/2024 05/11/2024 IMPRESSION: 1. Seropositive RA, currently stable. 2. Osteoarthritis. 3. History of recent bronchopneumoni a, overall markedly improved. PLAN: 1. We will obtain a copy of her most recent [facility] labs performed in February of last year. 2. Plan on repeat DMARD labs July 13, 2024. 3. Continue current RINVOQ dosing. 4. Followup visit in 4 months. rita [email or web address] Not available 05/11/2024 15:45:10 Plan of Treatment Reminders Order Date Submit Date Provider Last Modified By Organization Details Last Modified Time Details Appointments Establish ed Patient 15.EST 2024 11:30A M Dr. Craig Templeton Not available Not available Not available Lab CBC 2023 024 [id number] [facility], [address] [place] [address], [id number], 10/28/2023 14:07:31 CMP, serum or plasma 2023 024 [id number] [facility], [address] [place] [address], [address], 10/28/2023 14:07:31 ESR (erythroc yte sedimenta tion rate), blood 2023 024 [id number] [facility], [address] [place] [address], [id number], 10/28/2023 14:07:32 unlisted lab - CRP ([facility]) 2023 024 [id number] [facility], [address] [place] [address], [address], 10/28/2023 14:07:32 CBC 2023 024 [facility], [address] [place] [address], [address], 01/06/2024 10:27:32 CMP, serum or plasma 2023 024 [id number] [facility], [address] [place] [address], [address], 01/06/2024 10:27:32 ESR (erythroc yte sedimenta tion rate), blood 2023 024 [id number] [facility], [address] [place] [address], [id number], 01/06/2024 10:27:32 unlisted lab - CRP ([facility]) 2023 024 [id number] [facility], [address] [place] [address], [address], 01/06/2024 10:27:32 Referral None recorded. Procedures None recorded. Surgeries None recorded. Imaging None recorded. Medication Orders hydrocodo ne 7.5 mg-acetam inophen 325 mg tablet 2023 [id number], [address] [place], [place], [id number], 12/23/2023 16:07:35 Patient TargetsNo targets recorded. Patient InstructionsNo instructions recorded. Reason for Referral None Reported. Results Created Date Observation Date Name Description Value Unit Range Abnormal Flag Note LastModifiedBy Organization Detail LastModifiedTime 10/28/19 24 06/25/2022 imagi ng/di agnos tic resul t No observ ation record ed. [email or web address] Not Available 10/28/2023 02:23:32 Result Notes None recorded. Problems Name Problem SNOMED Code Status Onset Date Resolution Date Notes Provider Name and Address Organization Details Recorded Time Generalized osteoarthritis 612932645 Active 2024 Craig Templeton MD [address] [place], [address], [facility] 5 14:23:48 Chronic kidney disease stage 3 116664111 Active 2023 Rubi Gaxiola [facility], [facility] 4 11:46:35 Osteoarthritis 748812241 Active 2023 Rubi Gaxiola [facility] 4 11:46:40 Seropositive rheumatoid arthritis 099226781 Active 2023 Craig Templeton MD [address] [place] [address], [phone] [place] [address] 5 14:23:40 Problem Notes None recorded. Procedures Surgical History Date Name Laterality Status Provider Name and Address Organization Details Recorded Time Colonoscopy with biopsy completed Not Available Health Note 09/07/2023 15:12:55 Removal of gallbladder completed Not Available Health Note 09/07/2023 15:12:55 Imaging Results None recorded. Procedure Notes None recorded. Medical Equipment None Reported. Allergies Allergen ID Allergen Name Allergen Category Reaction Reaction Severity Criticality Documentation Date Start Date Code Code System Note Provider Name and Address Organization Details Recorded Time 6866477 Acetamino phen / Propoxyph chrissie medicatio n bradycard ia Not available Not available 04/14/20232006 55349 RxNorm React ion: Abhijit cardi a; Not Available [facility] 4 04:10:04 400641 Substance with sulfonami de structure and antibacte rial mechanism of action (substanc e) medicatio n swelling Not available Not available 04/12/20232011 58644 8003 SNOMED React ion: Swell ing; Comme nt: Annot ation s: GRUND Y, BRAND ON 2011 3:03P M CAUSE D TONGU E AND LIPS TO SWELL ; ; Not Available [facility] 4 23:45:33 490656 tramadol hydrochlo ride medicatio n dizziness Not available Not available 04/12/20232006 84909 RxNorm React ion: Vomit ing; Dizzi ness; Not Available [facility] 4 23:45:34 781127 lisinopri l medicatio n Not available Not available Not available 04/12/20232019 56018 RxNorm Not Available [facility] 4 23:45:34 Medications Name Sig Start Date Stop Date Status Note LastModified by Organization Details LastModified Time metformin 500 mg tablet TAKE 1 TABLET BY MOUTH THREE TIMES DAILY active Not Available Not Available No t Available azithromyci n 250 mg tablet TK 2 TS PO ON DAY 1, THEN TK 1 T PO D FOR 4 DAYS active Not Available Not Available No t Available metoprolol succinate ER 50 mg tablet,exte [...] Not Available simvastatin 40 mg tablet TAKE 1 TABLET BY MOUTH EVERY NIGHT AT BEDTIME active Not Available Not Available No t Available hydrocodone 7.5 mg-acetamin ophen 325 mg tablet TAKE 1/2 TO 1 TABLET BY MOUTH TWICE DAILY NEEDED 12/22 completed Not Available Not Available Not Available gabapentin 300 mg capsule TAKE 1 CAPSULE BY MOUTH DAILY active Not Available Not Available No t Available levofloxaci n 500 mg tablet TAKE 1 TABLET BY MOUTH EVERY 24 HOURS active Not Available Not Available No t [...] Not Available Not Available No t Available Paxlovid 300 mg (150 mg x 2)-100 mg tablets in a dose pack TK 2 NIRMATREL VIR TS AND 1 RITONAVIR T TOGETHER PO BID FOR 5 DAYS active Not Available Not Available No t Available Ozempic 0.25 mg or 0.5 mg (2 mg/3 mL) subcutaneou s pen injector Inject by subcutane ous route. active Not Available Not Available No t Available Vitals Date Recorded Body height Heart rate Oxygen saturation Oxygen saturation in Arterial blood by Pulse oximetry Systolic blood pressure Diastolic blood pressure Provider Name and Address Organization Details Last Updated DateTime 5 152.4 cm 79 /min 97 % 97 % 144 mm[Hg] 80 mm[Hg] Nick Fernandez [facility] 5 13:59:07 Date Recorded Body height Body mass index (BMI) Body weight Heart rate Oxygen saturation Oxygen saturation in Arterial blood by Pulse oximetry Systolic blood pressure Diastolic blood pressure Provider Name and Address Organization Details Last Updated DateTime 4 152.4 cm 29.3 kg/m2 63271.8 6 g 78 /min 98 % 98 % 130 mm[Hg] 80 mm[Hg] Rubi Gaixola [facility] 4 14:46:53 Date Recorded Body height Body mass index (BMI) Body weight Heart rate Oxygen saturation Oxygen saturation in Arterial blood by Pulse oximetry Systolic blood pressure Diastolic blood pressure Provider Name and Address Organization Details Last Updated DateTime 4 152.4 cm 31.5 kg/m2 00246.8 1 g 71 /min 96 % 96 % 138 mm[Hg] 76 mm[Hg] Татьяна Green [facility] 4 16:06:43 Social History Question Answer Notes LastModified by Organizat ion Details LastModified Time Tobacco Smoking Status Never Smoker Татьяна Green [facility] 12/23/2023 16:08:38 Do You Have An Advance Directive? No [email or web address] Information not available 09/07/2023 What Is Your Level Of Caffeine Consumption? Occasional [email or web address] Information not available 09/07/2023 How Many Times Per Week Do You Exercise? 1-2 Times Per Week [email or web address] Information not available 09/07/2023 Do You Have A Medical Power Of Waste Disposal Attendant? No [email or web address] Information not available 09/07/2023 What Was The Date Of Your Most Recent Tobacco Screening? 09/09/2023 [email or web address] Information not available 09/07/2023 What Is Your Relationship Status? [email or web address] Information not available 09/07/2023 Sex: Unknown Functional Status Question Answer Note LastModified by Organizat ion Details LastModified Time Do you use any illicit or recreational drugs? No [email or web address] Information not available 09/07/2023 What is your level of alcohol consumption? None [email or web address] Information not available 09/07/2023 Are you currently employed? 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 Occasional [email or web address] [...] available 2023 15:12:54 Medical History Condition Response Attention-deficit Hyperactivity Disorder N High Blood Pressure Y Thyroid Problems N COPD N Depression N Anemia Y Diabetes Y Anxiety Disorder N Bleeding Disorder N Arthritis Y Hyperlipidemia N Cancer N Stroke N Asthma N Seizures N Heart Disease N Fibromyalgia Y Osteoporosis N Kidney Disease N Gynecological HistoryNo gynecological history recorded. Obstetrics History GPAL:G 0 P 0 0 0 0 Past Encounters Encounter ID Performer Location Encounter Start Date Encounter Closed Date Diagnosis/Indication Diagnosis SNOMED-CT Code Diagnosis ICD10 Code Diagnosis Note [id number] Craig Templeton MD [facility] [place] ([place]) [address] [place] [place] [address] 09/09/2023 14:14:03 09/14/2023 04:16:05 Seropositive rheumatoid arthritis 893705723 M05.9 Osteoarthritis 599311458 M19.90 Chronic ki dney disease stage 3 179976288 N18.30 Seropositi ve rheumatoid arthritis of multiple joints 9835485044 7581309 M05.89 Long-term current use of etanercept 0864128111 95649 Z79.193 [id number] Craig Templeton MD [facility] [place] ([place]) [address] [place] [address] 12/23/2023 15:52:27 01/05/2024 08:49:18 Seropositive rheumatoid arthritis 344554245 M05.9 Osteoarthritis 988700409 M19.90 Chronic ki dney disease stage 3 529853572 N18.30 [id number] Craig Templeton MD [facility] [place] ([place]) [address] [place] [address] 05/11/2024 13:52:31 05/12/2024 07:07:25 Seropositive rheumatoid arthritis 345133328 M05.9 Generalize d osteoarthritis 154075911 M15.9 Health Concerns Section Related Observation LastModified by Organization Detai ls LastModified Time None Recorded Concern Status LastModified by Organization Details LastModified Time None Recorded Advance Directives Directive N: Payers Insurance Date Sequence Insurance Name Policy Number Policy Alvarado Covered Member ID Alvarado Member ID Guarantor Name 05/12/2024 1 [place] [id number] Sharda L Estelle [id number] Sharda L Estelle 12/22/2023 1 Progression [id number] Sharda L Estelle [id number] Sharda L Estelle 02/25/2024 2 [place] Sharda L Estelle [id number] Sharda L Estelle 06/24/2024 2 [place] Sharda L Estelle [id number] Sharda L Estelle Notes Date Note Type Note Provider Name [...] trials of mycophenolate, methotrexate, leflunomide and hydroxychloroquine.cheyenne Maciel a 68 year oldfemalepresenting for care. Craig Templeton MD [facility] [address], [address], [facility] 09/14/2023 11:25:16 4 text/html The patient [...] drug. It has led to a complete episcopal of her ability to do pretty much [...] symptoms. She did recently have labs at [facility] and we will obtain a copy of these labs for my review.rita Templeton MD [facility] [address], [address], [facility] 01/04/2024 20:55:17 5 text/html The patient is a 69-year-old female with a history of seropositive RA and osteoarthritis, who is here today for a followup visit. She reports she had to go off her RINVOQ for about 12 days approximately 2-3 weeks ago after developing sudden onset of shortness of breath and fatigue. She was seen by her PCP and diagnosed with a bronchopneumonia. She was treated with a Z-Froylan and then was transitioned to Levaquin. She could only take a few days of the Levaquin. It was causing severe muscle aches and tendon pain. However, she now is feeling better. She still has an occasional cough, but is not producing the yellow sputum she was while she was infected. She has been using a nasal lavage automated system to help remove congestion from her nose. She has had no fever or chills. She denies any pleurisy, chest pain or palpitations at this time. No dysuria or gross hematuria, GERD, melena or hematochezia. She is now back on RINVOQ therapy. She reports that approximately the 7th or 8th day se was off the medication she began to experience some increased pain and stiffness throughout the hands, wrists, elbows, knees, ankles and MTP joints of the feet. These symptoms have now improved dramatically. She rates her pain level a 1-2/10 on a scale. Her morning stiffness now has settled down, dropping from 1-2 hours in duration to less than 30 minutes.rita Templeton MD [address] [place] [address], [address], [facility] 05/11/2024 21:58:10 OBGyn Episode No OBEpisode recorded.
--- OUTSIDE RECORDS SUMMARY | 2024-08-30 10:42 | XMS_ITS | Clinical Summary ---
Author Organization [facility] Address [facility] [place] [address] Care Team Providers Care Tree Fruit And Nut Farming Supervisor Name Role Phone Cameron Lopez MD Primary Care Provider [phone] Allergies Active Allergy Reactions Criticality Noted Date [...] 1 - Tdap) 01/30/1975 Mammogram Screening 1996 Pneumococcal Vaccine: 50+ Ye ars (1 of 1 - PCV) 01/30/2006 Zoster Vaccines (2 of 3) 07/01/2016 05/06/2016 Annual Medicare Wellness Visit 01/30/2021 Dexa Scan (General) 01/30/2021 COVID-19 Vaccine ( - 2023-2 5 season) 2023 RSV Immunization or 60+ Years (1 [...] age to complete this [place] [address] [facility] Care Teams Tree Fruit And Nut Farming Supervisor Relationship Specialty Start Date End Date Cameron Lopez MD [address] [place] [address] PCP - General FAMILY PRACTICE 05/04/19
--- OUTSIDE RECORDS SUMMARY | 2024-08-30 10:42 | XMS_ITS ---
Author Organization Unknown Address [address] [place] [phone] Phone Care Team Providers Care Shipping Assistant Name Role Phone WALDO DACOSTA Attending Unavailable JEREMIE RAMOS EMPLOYEE BENEFITS ATTORNEY Unavailable CRISTY MARC Primary Unavailable Immunization Immunization Date Status Additional Notes Code Code System Td (adult), 2 Lf tetanus toxoid, preservative free, adsorbed 01/10/2005 Completed 09 CVX Tdap 10/28/2016 Completed 115 CVX zoster live 05/06/2016 Completed 121 CVX Influenza, split virus, trivalent, preservative 11/14/2011 Completed 141 CVX Influenza, split virus, trivalent, preservative 12/13/2012 Completed 141 CVX zoster recombinant 05/20/2021 Completed 187 CVX zoster recombinant 11/18/2021 Completed 187 CVX Influenza, adjuvanted, quadrivalent, PF 02/02/2023 Completed 205 CVX COVID-19, mRNA, LNP-S, PF, 1 00 mcg/0.5mL dose or 50 mcg/0.25mL dose 03/18/2020 Completed 207 CVX COVID-19, mRNA, LNP-S, PF, 1 00 mcg/0.5mL dose or 50 mcg/0.25mL dose 04/15/2020 Completed 207 CVX COVID-19, mRNA, LNP-S, PF, 3 0 mcg/0.3 mL dose 11/25/2020 Completed 208 CVX COVID-19, mRNA, LNP-S, PF, 3 0 mcg/0.3 mL dose, rayne-sucrose 07/01/2021 Completed 217 CVX COVID-19, mRNA, LNP-S, PF, rayne-sucrose, 30 mcg/0.3 mL 12/02/2022 Completed 309 CVX Results BEDSIDE GLUCOSE - Collect Da te/Time: 09/15/2023 14:52 [facility] ID: [id number] [address] [place], [place], [id number] LOINC: 47757-8 Test Value Unit Reference Range Code Code System Flag BEDSIDE GLUCOSE 78 mg/dl L=74 H=106 73885-4 LOINC Social History Type Status Start Date End Date Code Code Syst em Smoking History Never smoker (Never Smoked) 994062027 SNOMED CT Sex Female Vital Signs Vital Sign Value Unit Cambria Value Cambria Unit Date/Time Recent/Initial? Code Code System Body Mass Index 24.63 kg/m2 09/07/2023 09:49 Initial 98913- 5 LOINC Body Surface Area 1.75 m2 09/07/2023 09:49 Initial 3140-1 LOINC Height 165.1000 cm 65.00 in 09/07/2023 09:49 Initial 8302-2 LOINC Weight 67.13 kg 148.00 lbs 09/07/2023 09:49 Initial 36518- 7 INC Hospital Discharge Instructions Should you have any questions prior to discharge, please contact a member of your healthcare team. If you have left the hospital and have any questions, please contact your primary care physician. Reason For Referral No Data Found Procedures Procedure Name Date Status Code Code Lavonne neumann Left wrist completed 2577022 SNOMEDCT Cholecystectomy completed 48311707 SNOMEDCT Breast reduction completed 94205999 SNOMEDCT Anesthesia for procedures on eye; not otherwise specified (base units 5) 09/15/2023 completed 60601 CPT Excision of lesion, cornea, except pterygium 09/15/2023 completed 16892 CPT Allergies and Adverse Reactions Allergy Substance Reaction Severity Start Date Concern Status Code Code System SULFA (sulfonamide) SOB (SNOMED-CT: 561262217), Swelling (SNOMED-CT: 58382368), Redness (SNOMED-CT: 814867781) Active 24308237 SNOMED-CT TRAMADOL SOB (SNOMED-CT: 493037975), Swelling (SNOMED-CT: 68543915), Redness (SNOMED-CT: 554573586) Active 52633 RxNorm Plan of Treatment Salzmann Nodule Removal 09/15/2023 Encounters Encounter Diagnosis Start Date Code Code Sys tem Other hereditary corneal dystrophies, bilateral 2023 SNOMED-CT Personal Care Team Section Performer Name Performer Role Active Date Inactive MONICO Joseph PCP - Primary care physician
== END 2024-08-30 09:43 | disposition home or self-care (01) ==
LOC: CHSIMG 09:44
PROVIDERS: PCP Family Medicine; Visit Provider Family Medicine
DX: R10.9 Unspecified abdominal pain (principal); R10.2 Pelvic and perineal pain
CPT/HCPCS: 74176

== ENCOUNTER 2024-10-03 00:50 | Day surgery (SDC) | payer MEDICARE, SELFPAY ==
[2024-09-19 13:33] VITALS: BMI 28.3
--- OUTSIDE RECORDS SUMMARY | 2024-10-03 00:53 | XMS_ITS | Clinical Summary ---
Author Organization [facility] Address [facility] [place] [address] Care Team Providers Care Muck Miner Name Role Phone Cameron Lopez MD Primary Care Provider [phone] Allergies Active Allergy Reactions Criticality Noted Date [...] to complete [place] [address] [facility] Care Teams Muck Miner Relationship Specialty Start Date End Date Cameron Lopez MD [address] [place] [address] PCP - General FAMILY PRACTICE 05/04/19
--- OUTSIDE RECORDS SUMMARY | 2024-10-03 00:54 | XMS_ITS | Data Portability ---
Author Organization [facility], [address] [facility] ([place]) Address [address] [place] [address] Care Team Providers Care Customs Collector Name Role Phone MONICO MUNIZ Referring Provider Assessment Encounter Date Assessment Date Assessment LastModified by Organization Details LastModified Time 09/09/2023 09/09/2023 IMPRESSION: 1. Seropositive RA currently flaring. 2. Osteoarthritis. PLAN: 1. We will obtain a copy of her most recent labs from [facility] [employer]. 2. Very brief 1 week course of hydrocodone therapy as she cannot take oral NSAIDs. She has been on hydrocodone in the past and tolerated it well. I informed her today I do not prescribe this medication out beyond 7 day course. She is given [place] 7.5/325 tabs one-half to 1 tablet orally [...] Followup visit in 3 months for recheck. nv Not available 09/12/2023 09:09:39 12/23/2023 12/23/2023 IMPRESSION: 1. Seropositive RA, currently very well controlled, essentially clinical remission. 2. Osteoarthritis. PLAN: 1. Continue RINVOQ 15 mg daily. 2. Labs done recently will be retrieved and reviewed. 3. Repeat DMARD labs in 6 weeks. 4. Followup visit in 4-1/2 months for recheck. rita Not available 01/04/2024 08:47:11 05/11/2024 05/11/2024 IMPRESSION: [...] 4. Followup visit in 4 months. rita Not available 05/11/2024 15:45:10 09/21/2024 09/21/2024 IMPRESSION: 1. Right foot flexor digitorum longus tendinitis. 2. Seropositive RA, currently stable. 3. Osteoarthritis. 4. Abdominal pain, ? related to irritable bowel syndrome management and further workup per GI. PLAN: 1. Gentle stretches and ice bottle rolling exercises for the right foot. She may use heat as well to the foot if it feels better. 2. Continue current RINVOQ dosing. 3. Labs to continue every 4 months for DMARD monitoring. 4. Followup visit in 6 months for recheck. rita Not available 09/21/2024 17:45:24 Plan of Treatment Reminders Order Date Submit Date Provider Last Modified By Organization Details Last Modified Time Details Appointments Establish ed Patient 15.EST 2025 01:15P M Dr. Craig Templeton Not available Not available Not available Lab CBC 2023 024 [email or web address] [facility], [address] [place] [address], [id number], 10/28/2023 14:07:31 CMP, serum or plasma 2023 024 [email or web address] [facility], [address] [place] [address], [id number], 10/28/2023 14:07:31 ESR (erythroc yte sedimenta tion rate), blood 2023 024 [email or web address] [facility], [address] [place] [address], [id number], 10/28/2023 14:07:32 unlisted lab - CRP ([facility]) 2023 [place] [address] [facility], [address] [place] [address], [id number], 10/28/2023 14:07:32 CBC 2023 024 [email or web address] [facility], [address] [place] [address], [id number], 01/06/2024 10:27:32 CMP, serum or plasma 2023 024 [email or web address] [facility], [address] [place] [address], [id number], 01/06/2024 10:27:32 ESR (erythroc yte sedimenta tion rate), blood 2023 024 [email or web address] [facility], [address] [place] [address], [id number], 01/06/2024 10:27:32 unlisted lab - CRP ([facility] only) 2023 [place] [address] [facility], [address] [place] [address], [id number], 01/06/2024 10:27:32 Referral None recorded. Procedures None recorded. Surgeries None recorded. Imaging None recorded. Medication Orders hydrocodo ne 7.5 mg-acetam inophen 325 mg tablet 2023 [id number], [address], [place], [id number], 12/23/2023 16:07:35 Patient TargetsNo targets recorded. Patient InstructionsNo instructions recorded. Reason for Referral None Reported. Results Created Date Observation Date Name Description Value Unit Range Abnormal Flag Note LastModifiedBy Organization Detail LastModifiedTime 10/28/1906/25/2022 imagi ng/di agnos tic resul t No observ ation record ed. [email or web address] Not Available 10/28/2023 02:23:32 Result Notes None recorded. Problems Name Problem SNOMED Code Status Onset Date Resolution Date Notes Provider Name and Address Organization Details Recorded Time Chronic kidney disease stage 3 367616098 [facility] 11[facility]35 Osteoarthritis 432154624 Active 2023 [facility] 4 11:46:40 Seropositive rheumatoid arthritis 217093602 Active 2023 Craig Templeton MD [address] [place] [address], [phone], [facility] 5 14:23:40 Generalized osteoarthritis 357431188 Active 2024 Craig Templeton MD [address] [place] [address], [phone], [facility] 5 14:23:48 Strain of flexor digitorum profundus tendon 922004661 Active 2024 Craig Templeton MD [address] [place] [address], [phone], [facility] 5 13:34:07 Problem Notes None recorded. Procedures Surgical History [...] Name and Address Organization Details Recorded Time 3340419 Acetamino phen / Propoxyph chrissie medicatio n bradycard ia Not available Not available 04/14/20232006 11943 RxNorm React ion: Abhijit cardi a; Not Available [facility] 4 04:10:04 006331 Substance with sulfonami de structure and antibacte rial mechanism of action (substanc e) medicatio n swelling Not available Not available 04/12/20232011 90643 8003 SNOMED React ion: Swell ing; Comme nt: Annot ation s: GRUND Y, BRAND ON 2011 3:03P M CAUSE D TONGU E AND LIPS TO SWELL ; ; Not Available [facility] 4 23:45:33 962311 tramadol hydrochlo ride medicatio n dizziness Not available Not available 04/12/20232006 72828 RxNorm React ion: Vomit ing; Dizzi ness; Not Available [facility] 4 23:45:34 084105 lisinopri l medicatio n Not available Not available Not available 04/12/20232019 12725 RxNorm Not Available [facility] 4 23:45:34 Medications Name Sig Start Date Stop Date Status Note LastModified by Organization Details LastModified Time metformin 500 mg tablet TAKE 1 TABLET BY MOUTH THREE TIMES DAILY active Not Available Not Available No t Available azithromyci n 250 mg tablet TAKE 2 TABLETS BY MOUTH ON DAY ONE THEN TAKE 1 TABLET BY MOUTH EVERY DAY FOR DAYS 2 THROUGH 5 09/18 completed Not Available Not Available Not Available [...] Available Not Available amoxicillin 500 mg tablet 09/18 completed Not Available Not Available Not Available [...] 1 TABLET BY MOUTH EVERY 24 HOURS 09/21 completed Not Available Not Available Not Available nortriptyli ne 50 mg capsule TAKE 1 CAPSULE BY MOUTH AT BEDTIME active Not Available Not Available No t Available amoxicillin 875 mg-potorlando m clavulanate 125 mg tablet TAKE 1 [...] Not Available Not Available No t Available [employer] Automatic Blood Glucose System USE TO CHECK BLOOD SUGAR ONCE DAILY active Not Available Not Available No t Available PoPanAtlanta Automatic Test Cartridge 30 gauge combo pack USE TO CHECK BLOOD SUGAR ONCE DAILY active Not Available Not Available No t Available Paxlovid 300 mg (150 mg x 2)-100 mg tablets in a dose pack TK 2 NIRMATREL VIR TS AND 1 RITONAVIR T TOGETHER PO BID FOR 5 DAYS 09/21 completed Not Available Not Available Not Available Ozempic 0.25 mg or 0.5 mg (2 mg/3 mL) subcutaneou s pen injector INJECT 0.5MG UNDER THE SKIN WEEKLY active Not Available Not Available No t Available Vitals Date Recorded Body height Heart rate Oxygen saturation Oxygen saturation in Arterial blood by Pulse oximetry Systolic And Diastolic Provider Name and Address Organization Details Last Updated DateTime 5 152.4 cm 79 /min 97 % 97 % 144/80 mm[Hg] [facility] 5 13:59:07 Date Recorded Body height Body mass index (BMI) Body weight Heart rate Oxygen saturation Oxygen saturation in Arterial blood by Pulse oximetry Systolic And Diastolic Provider Name and Address Organization Details Last Updated DateTime 4 152.4 cm 29.3 kg/m2 58119.8 6 g 78 /min 98 % 98 % 130/80 mm[Hg] Rubi Minor [facility] 4 14:46:53 Date Recorded Body height Heart rate Oxygen saturation Oxygen saturation in Arterial blood by Pulse oximetry Systolic And Diastolic Provider Name and Address Organization Details Last Updated DateTime 5 152.4 cm 68 /min 97 % 97 % 138/82 mm[Hg] Merly Shea [facility] 5 12:45:41 Date Recorded Body height Body mass index (BMI) Body weight Heart rate Oxygen saturation Oxygen saturation in Arterial blood by Pulse oximetry Systolic And Diastolic Provider Name and Address Organization Details Last Updated DateTime 4 152.4 cm 31.5 kg/m2 75243.8 1 g 71 /min 96 % 96 % 138/76 mm[Hg] Татьяна Green [facility] 4 16:06:43 Social History Question Answer Notes LastModified by Tenebril Details LastModified Time Tobacco Smoking Status Never Smoker Татьяна Green [facility] 12/23/2023 16:08:38 Do You Have An Advance Directive? No [email or web address] Information not available 09/07/2023 What Is Your Level Of Caffeine Consumption? Occasional [email or web address] Information not available 09/07/2023 How Many Times Per Week Do You Exercise? 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 09/09/2023 [email or web address] Information not available 09/07/2023 What Is Your Relationship Status? [email or web address] Information not available 09/07/2023 Sex: Unknown Functional Status Question Answer Note LastModified by Tenebril Details LastModified Time Do you use any [...] available 2023 15:12:54 Medical History Condition Response Anxiety Disorder N Diabetes Y Bleeding Disorder N Attention-deficit Hyperactivity Disorder N High Blood Pressure Y Arthritis Y Hyperlipidemia N Cancer N Thyroid Problems N Stroke N COPD N Depression N Asthma N Seizures N Anemia Y Heart Disease N Fibromyalgia Y Osteoporosis N Kidney Disease N Gynecological HistoryNo gynecological history recorded. Obstetrics History GPAL:G 0 P 0 0 0 0 Past Encounters Encounter ID Performer Location Encounter Start Date Encounter Closed Date Diagnosis/Indication Diagnosis SNOMED-CT Code Diagnosis ICD10 Code Diagnosis Note [id number] Craig Templeton MD [facility] [place] [address] [place] [address] 09/09/2023 14:14:03 09/14/2023 04:16:05 Seropositive rheumatoid arthritis 008802100 M05.9 Osteoarthritis 644326264 M19.90 Chronic ki dney disease stage 3 109282950 N18.30 Seropositi ve rheumatoid arthritis of multiple joints 4206591229 5892284 M05.89 Long-term current use of etanercept 8484562327 00056 Z79.565 [id number] Craig Templeton MD [facility] [place]) [address] [place] [address] 12/23/2023 15:52:27 01/05/2024 08:49:18 Seropositive rheumatoid arthritis 114723740 M05.9 Osteoarthritis 629975082 M19.90 Chronic ki dney disease stage 3 900143962 N18.30 [id number] Craig Templeton MD [facility] [place] [address] [place] [address] 05/11/2024 13:52:31 05/12/2024 07:07:25 Seropositive rheumatoid arthritis 978528004 M05.9 Generalize d osteoarthritis 493234147 M15.9 [id number] Craig Templeton MD [facility] ([place]) [address] [place] [address] 09/21/2024 11:49:30 09/23/2024 06:27:17 Seropositive rheumatoid arthritis 563062196 M05.9 Generalize d osteoarthritis 553316533 M15.9 Strain of flexor digitorum profundus tendon 269767103 S66.819A Health Concerns Section Related Observation LastModified by Organization Detai ls LastModified Time None Recorded Concern Status LastModified by Organization Details LastModified Time None Recorded Advance Directives Directive N: Payers Insurance Date Sequence Insurance Name Policy Number Policy Alvarado Covered Member ID Alvarado Member ID Guarantor Name 09/23/2024 1 [facility] [id number] Sharda L Estelle [id number] Sharda L Estelle 09/21/2024 1 [employer] [id number] Sharda L Estelle [id number] Sharda L Estelle 09/21/2024 2 [place] Sharda L Estelle [id number] Sharda L Estelle 09/21/2024 2 [place] Sharda L Estelle [id number] Sharda L Estelle Notes Date Note Type [...] of mycophenolate, methotrexate, leflunomide and hydroxychloroquine.cheyenne Sharda Maciel a 68 year oldfemalepresenting for care. Craig Templeton MD [address] [place] [address], [phone], [facility] 09/14/2023 11:25:16 4 text/html The patient is [...] drug. It has led to a complete jew of her ability to do pretty much [...] symptoms. She did recently have labs at [facility] and we will obtain a copy of these labs for my review.rita Templeton MD [address] [place] [address], [phone], [facility] 01/04/2024 20:55:17 5 text/html The patient is [...] than 30 minutes.rita Templeton MD [address] [place] [address], [phone], [facility] 05/11/2024 21:58:10 5 text/html The patient is a 69-year-old female with seropositive RA and osteoarthritis, who is here today for a followup visit. She reports the RINVOQ continues to provide benefit in terms of controlling her arthritis such that she does not require the use of prednisone therapy. She does have good days and bad days. She states overall her joints are tolerable. Her pain level is a 3/10 on a scale with roughly 30 minutes of morning stiffness. Her energy level varies from day to day, but she does keep active on her feet. She helps her with yard work and mows with a riding mower. Over the past several weeks, she has been dealing with some right foot pain just below and on the plantar surface of the 2nd and 3rd MTP joints. She notices it with prolonged standing and ambulation. It is better with rest and elevation. She has tried some icing and heat with variable amounts of relief. The patient denies any Raynaud s symptoms. No fever or chills, sore throat, sinus complaints, aphthous ulcers, cough, pleurisy, shortness of breath, chest pain or palpitations, GERD, melena or hematochezia though she has been battling some abdominal pain that is intermittent. It is not postprandial. It will strike at any time. It is associated with abdominal cramping and some tenesmus while she is trying to have a bowel movement. The cramps and abdominal symptoms will last for 1-2 days, then subside. She is scheduled to see Dr. Villasenor at [facility] for a GI workup. She had a CT of the abdomen and pelvis with her PCP and it was largely unremarkable. She has had no nausea or vomiting. Her appetite is fair. No UTI symptoms or renal calculi. No history of DVT, PE or MACE events. No shingles. She has had the shingles vaccine.rita Templeton MD [address] [facility] [place], [address], [place] [facility] 09/23/2024 19:10:19 OBGyn Episode No OBEpisode recorded.
--- OUTSIDE RECORDS SUMMARY | 2024-10-03 00:54 | XMS_ITS ---
Author Organization Unknown Address [address] [place] [phone] Phone Care Team Providers Care Boilerhouse Mechanic Name Role Phone WALDO DACOSTA Attending Unavailable JEREMIE RAMOS SERVICE OBSERVER Unavailable CRISTY MARC Primary Unavailable Immunization Immunization [...] GLUCOSE - Collect Da te/Time: 09/15/2023 14:52 [facility] ID: [id number] [address] [place], [place], [phone] LOINC: 04967-6 Test Value Unit Reference Range Code Code System Flag BEDSIDE GLUCOSE 78 mg/dl L=74 H=106 07785-0 LOINC Social History Type Status Start Date End Date Code Code Syst em Smoking History Never smoker (Never Smoked) 031700795 SNOMED CT Sex Female Vital Signs Vital Sign Value Unit Overton Value Overton Unit Date/Time Recent/Initial? Code Code System Body Mass Index 24.63 kg/m2 09/07/2023 09:49 Initial 03488- 5 LOINC Body Surface Area 1.75 m2 09/07/2023 09:49 Initial 3140-1 LOINC Height 165.1000 cm 65.00 in 09/07/2023 09:49 Initial 8302-2 LOINC Weight 67.13 kg 148.00 lbs 09/07/2023 09:49 Initial 06240- 7 INC Hospital Discharge Instructions Should you have any questions prior to discharge, please contact a member of your healthcare team. If you have left the hospital and have any questions, please contact your primary care physician. Reason For Referral No Data Found Procedures Procedure Name Date Status Code Code Lavonne neumann Left wrist completed 1452432 SNOMEDCT Cholecystectomy completed 09586249 SNOMEDCT Breast reduction completed 84014445 SNOMEDCT Anesthesia for procedures on eye; not otherwise specified (base units 5) 09/15/2023 completed 41997 CPT Excision of lesion, cornea, except pterygium 09/15/2023 completed 29584 CPT Allergies and Adverse Reactions Allergy Substance Reaction Severity Start Date Concern Status Code Code System SULFA (sulfonamide) SOB (SNOMED-CT: 570104879), Swelling (SNOMED-CT: 89173286), Redness (SNOMED-CT: 111291317) Active 01777747 SNOMED-CT TRAMADOL SOB (SNOMED-CT: 076792482), Swelling (SNOMED-CT: 57701209), Redness (SNOMED-CT: 274969858) Active 46097 RxNorm Plan of Treatment Salzmann Nodule Removal 09/15/2023 Encounters Encounter Diagnosis Start Date Code Code Sys tem Other hereditary corneal dystrophies, bilateral 2023 SNOMED-CT Personal Care Team Section Performer Name Performer Role Active Date Inactive MONICO Joseph PCP - Primary care physician
--- OUTSIDE RECORDS SUMMARY | 2024-10-03 00:54 | XMS_ITS | Patient Health Record ---
Author Organization [facility] Address [address] [place], [place] [id number] Care Team Providers Care Business Administration Program Chair Name Role Phone ZHANNA MEMBRENO Unavailable [phone] Cameron Lopez Unavailable Unavailable Reason For Referral No Information Medications Medication SIG (Take, Route, Frequency, Duration) Notes Start Date End Date Status metformin hydrochloride 500 MG Oral Tablet ORAL metformin hydrochloride 500 MG Oral TabletOriginal Medicationmetformin hydrochloride 500 MG Oral Tablet *Reorder from MEDEM for eRx and Interaction Alerts* 5 Active nortriptyline 10 MG Oral Capsule ORAL nortriptyline 10 MG Oral CapsuleOriginal Medicationnortriptyline 10 MG Oral Capsule *Reorder from MEDEM for eRx and Interaction Alerts* 5 Active omeprazole 10 MG Granules for Oral Suspension [Prilosec] ORAL omeprazole 10 MG Granules for Oral Suspension [Prilosec]Original Medicationomeprazole 10 MG Granules for Oral Suspension [Prilosec] *Reorder from MEDEM for eRx and Interaction Alerts* 5 Active Losartan Potassium 25 MG Oral Tablet ORAL losartan potassium 25 MG Oral TabletOriginal Medicationlosartan potassium 25 MG Oral Tablet *Reorder from MEDEM for eRx and Interaction Alerts* 5 Active 24 HR metoprolol succinate 100 MG Extended Release Oral Tablet [Toprol] ORAL 24 HR metoprolol succinate 100 MG Extended Release Oral Tablet [Toprol]Original Pusrkgrwen17 HR metoprolol succinate 100 MG Extended Release Oral Tablet [Toprol] *Reorder from MEDEM for eRx and Interaction A Active duloxetine 20 MG Delayed Release Oral Capsule [Cymbalta] ORAL duloxetine 20 MG Delayed Release Oral Capsule [Cymbalta]Original Medicationduloxetine 20 MG Delayed Release Oral Capsule [Cymbalta] *Reorder from MEDEM for eRx and Interaction Alerts* Active Plan Of Treatment No Information Insurance Providers Payer Name Payer Address Payer Phone Subscriber Number Group Number Insured Name Patient Relationship to Insured Coverage Start Date Coverage End Date [facility] [address] [address] [place] [address] [id number] [employer] Self - patient is the insured
[2024-10-03 10:22] VITALS: BP 132/64; PULSE 52; RESP 18; TEMP 36.7; O2SAT 100; BMI 28.2
[2024-10-03] MEDS: LACTATED RINGERS 1,000 ML 150 ML IV CONT (10:32)
--- NOTE | 2024-10-03 10:44 | P.PNAN_ITS ---
Anes - Initial Pre Proc Eval Procedure: Operation Date: 10/03/24 11:45 Proposed Procedures p Screening Colonoscopy - Bernardo Villasenor DO Date/Time: 10/03/24 10:44 Surgeon: Bernardo Villasenor DO Pre Op Diagnosis: Neoplasm screening Patient Data Age: 69 Gender: F Height: 1.55 m Weight: 67.8 kg Last Vital Signs Temp 98.0 F 10/03/24 10:22 Pulse 52 L 10/03/24 10:22 Resp 18 10/03/24 10:22 BP 132/64 10/03/24 10:22 Pulse Ox 100 10/03/24 10:22 O2 Del Method Room Air 10/03/24 10:22 Allergies Allergy/AdvReac Type Severity Reaction Status Date / Time propoxyphene Allergy Mild Unknown Verified 10/03/24 10:19 Sulfa (Sulfonamide Allergy Mild Unknown Verified 10/03/24 10:19 Antibiotics) tramadol Allergy Mild Unknown Verified 10/03/24 10:19 Home Medications ?Medication ?Instructions ?Recorded ?Confirmed ?Type gabapentin 300 mg capsule 300 mg PO DAILY 09/19/24 10/03/24 History hydrochlorothiazide 12.5 mg tablet 12.5 mg PO DAILY 09/19/24 10/03/24 History metformin 500 mg tablet 500 mg PO DAILY 09/19/24 10/03/24 History metoprolol succinate 100 mg 100 mg PO Q12H 09/19/24 10/03/24 History tablet,extended release 24 hr nortriptyline 50 mg capsule 50 mg PO QPM 09/19/24 10/03/24 History olmesartan 40 mg tablet 40 mg PO DAILY 09/19/24 10/03/24 History semaglutide 0.25 mg or 0.5 mg (2 0.25 mg subcut WEEKLY 09/19/24 10/03/24 History mg/3 mL) subcutaneous pen injector (Ozempic) simvastatin 40 mg tablet 40 mg PO QPM 09/19/24 10/03/24 History Laboratory Tests 10/03/24 10:17 POC Capillary Glucose 79 mg/dl (65-105) Patient hx anesthesia problems: none Family hx anesthesia problems: none Results Review: All pre-operative results and documents have been reviewed as part of the pre- operative evaluation. [facility] Past Medical History Medical History Neuroma of second interspace of left foot Family History Family History Father Diabetes mellitus Acute myocardial infarction Family history of chronic obstructive pulmonary disease Family history of Alzheimer's disease Mother Hypertension Family history of elevated blood lipids Family history of coronary artery disease Family history of type 2 diabetes mellitus Sibling Acute myocardial infarction Family history of type 2 diabetes mellitus Social History Social History Smoking status: Never smoker Alcohol intake: never Substance use: never Substance use type: does not use Anes - Eval Final PreProcedure Day of Procedure 10/03/24 10:44 Patient weight: overweight Lungs: normal air movement Airway: Mallampati scale class II Neurological: alert and oriented Last oral intake: >/= 8 hours ASA classification: III Emergent: no Anesthetic plan: proceed Anesthesia type and monitoring: general GIVS and standard monitoring Results Review: All pre-operative results and documents have been reviewed as part of the pre- operative evaluation. HTN, hyperlipidemia, DM fsbs 79. Informed Consent: The patient's anesthetic plan and its attendant risks and benefits were discussed with the patient/family/POA. Questions were solicited and answers provided to the satisfaction of the patient/family/POA.
--- NOTE | 2024-10-03 10:59 | PM.IMHP ---
H&P: HPI History of Present Illness Date/Time: 10/03/24 10:59 Chief Complaint: screening for colorectal cancer Narrative: this is a 69-year-old woman who presents for colonoscopy. Her last colonoscopy was 18 years ago. She denies any hematochezia or melena and denies any first-degree relative family history of colon cancer. She does have some occasional lower abdominal cramping pain. A prior CT was performed about 1 month ago and was normal. Review of Systems Review of Systems: All systems reviewed & are unremarkable except as noted in HPI and below Constitutional: Constitutional: Denies chills, Denies fever(s), Denies headache(s) and Denies weight loss Eyes: Eyes: Denies change in vision ENT: Denies dizziness, Denies headache(s), Denies neck mass and Denies throat swelling Cardiovascular: Cardiovascular: Denies chest pain, Denies lightheadedness and Denies dyspnea Respiratory: Respiratory: Denies cough, Denies dyspnea and Denies wheezing Gastrointestinal: Gastrointestinal: Denies abdominal pain, Denies change in bowel habits, Denies nausea and Denies vomiting Genitourinary: Genitourinary: Denies hematuria and Denies dysuria Musculoskeletal: Musculoskeletal: Reports as per HPI Integumentary/Breasts: Skin/Breast: Reports as per HPI Neurologic: Denies dizziness and Denies headache(s) Allergic/Immunologic: Allergic/Immunologic: Denies throat swelling and Denies wheezing [facility] [place] Past Medical History Medical History Neuroma of second interspace of left foot Family History Family History Father Diabetes mellitus Acute myocardial infarction Family history of chronic obstructive pulmonary disease Family history of Alzheimer's disease Mother Hypertension Family history of elevated blood lipids Family history of coronary artery disease Family history of type 2 diabetes mellitus Sibling Acute myocardial infarction Family history of type 2 diabetes mellitus Social History Social History Smoking status: Never smoker Alcohol intake: never Substance use: never Substance use type: does not use Meds Home Medications and Allergies Home Medications ?Medication ?Instructions ?Recorded ?Confirmed ?Type gabapentin 300 mg capsule 300 mg PO DAILY 09/19/24 10/03/24 History hydrochlorothiazide 12.5 mg tablet 12.5 mg PO DAILY 09/19/24 10/03/24 History metformin 500 mg tablet 500 mg PO DAILY 09/19/24 10/03/24 History metoprolol succinate 100 mg 100 mg PO Q12H 09/19/24 10/03/24 History tablet,extended release 24 hr nortriptyline 50 mg capsule 50 mg PO QPM 09/19/24 10/03/24 History olmesartan 40 mg tablet 40 mg PO DAILY 09/19/24 10/03/24 History semaglutide 0.25 mg or 0.5 mg (2 0.25 mg subcut WEEKLY 09/19/24 10/03/24 History mg/3 mL) subcutaneous pen injector (Ozempic) simvastatin 40 mg tablet 40 mg PO QPM 09/19/24 10/03/24 History Allergies Allergy/AdvReac Type Severity Reaction Status Date / Time propoxyphene Allergy Mild Unknown Verified 10/03/24 10:19 Sulfa (Sulfonamide Allergy Mild Unknown Verified 10/03/24 10:19 Antibiotics) tramadol Allergy Mild Unknown Verified 10/03/24 10:19 Vital Signs Vital Signs - 24 hr 10/03/24 10:22 Temperature 98.0 F Pulse Rate 52 L Respiratory Rate 18 Blood Pressure 132/64 Pulse Oximetry 100 Oxygen Delivery Room Air Exam Const: General: no acute distress and alert Orientation/consciousness: patient oriented x3 HENMT: Head: normocephalic and atraumatic Ears: hearing grossly normal bilaterally Face/Nose/Sinus: Normal nares present Mouth: Yes Normal oral and palatal mucosa present Eyes: Periorbital: periorbital findings normal Sclera: sclerae normal EOM: EOMs intact bilaterally Neck: Neck: normal visual inspection, no lymphadenopathy and trachea midline Chest: Chest palpation & inspection: normal inspection of the chest Resp: Effort & Inspection: normal respiratory effort Auscultation: clear to auscultation bilaterally Cardio: Jugular venous distension: no JVD Rate: regular rate Rhythm: regular rhythm Heart sounds: S1 normal heart sound present and S2 normal heart sound present Peripheral pulses: Peripheral pulses 2+ throughout GI: Inspection: normal to inspection GI Palp: Yes Soft to palpation, No Tenderness to palpation present (GI), No Guarding due to palpation present (GI) and No Rebound tenderness present Percussion: Yes normal to percussion Auscultation: normal bowel sounds : General: Yes no CVA tenderness Back/Spine/Pelvis: Back: no CVA tenderness Neuro: General: patient oriented x3, no focal motor deficits and CN's II-XI intact bilaterally Cognition (Neuro): normal cognition Speech: normal speech Motor exam (neuro): 5/5 motor strength present throughout Extrem: General: capillary refill normal and no clubbing, cyanosis or edema Assessment and Plan Assessment and plan (1) Screening for colorectal cancer: Code(s): Z12.11 - Encounter for screening for malignant neoplasm of colon; Z12.12 - Encounter for screening for malignant neoplasm of rectum Status: Acute Assessment and Plan: I have recommended colonoscopy. I have discussed the procedure, risks, benefits, and alternatives. Questions were answered. Patient is agreeable to proceed.
[2024-10-03 11:22] VITALS: BP 121/97; PULSE 61; RESP 21; O2SAT 99
[2024-10-03 11:32] VITALS: BP 109/69; PULSE 62; RESP 16; O2SAT 99
[2024-10-03 11:42] VITALS: BP 133/66; PULSE 57; RESP 15; O2SAT 100
== END 2024-10-03 11:49 | disposition home or self-care (01) ==
PROVIDERS: PCP Family Medicine; Visit Provider Surgery
PROC: 0DJD8ZZ Inspection of Lower Intestinal Tract, Via Natural or Artificial Opening Endoscopic (ICD-10-PCS; CPT 45378; principal; 2024-10-03 11:45)
DX: Z12.11 Encounter for screening for malignant neoplasm of colon (principal); K57.30 Diverticulosis of large intestine without perforation or abscess without bleeding; I10 Essential (primary) hypertension; E78.5 Hyperlipidemia, unspecified; E11.9 Type 2 diabetes mellitus without complications; Z79.84 Long term (current) use of oral hypoglycemic drugs; Z79.85 Long-term (current) use of injectable non-insulin antidiabetic drugs; Z82.49 Family history of ischemic heart disease and other diseases of the circulatory system
CPT/HCPCS: G0121; 82948; J2704; J7120